=== PATIENT | male | born 1945 | race Caucasian/White ===

== ENCOUNTER 2020-11-12 06:23 | Inpatient (IN) | payer MEDICARE, SELFPAY ==
[2020-11-12] VITALS (19 sets, daily range): BP systolic 105–137; BP diastolic 68–94; PULSE 82–122; RESP 15–38; TEMP 36.1–36.6; O2SAT 83–95; BMI 27.2
--- NOTE | 2020-11-12 06:37 | XR_ITS ---
WS: [id number] PORTABLE CHEST HISTORY: Cough COMPARISON: 02/21/2013 Lung volumes are decreased. Mild thickening of the interstitium bilaterally has progressed since the prior study. Diaphragms are obscured by small bilateral pleural effusions. Pulmonary vasculature is i ncreased. No pneumothorax. Cardiac size: Mildly enlarged cardiac silhouette. Mediastinum/Aorta: Mild atherosclerosis aorta. No osseous abnormality seen. XR/XR chest 1V portable [id number] IMPRESSION: 1. Mild pulmonary venous congestion with small bilateral pleural effusions. 2. Mild cardiomegaly.
--- NOTE | 2020-11-12 06:37 | ECG_ITS ---
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 Measurements Intervals [place] Rate: 85 P: 44 NM: 139 QRS: 13 QRSD: 90 T: 0 QT: 396 QTc: 473 Interpretive Statements SINUS RHYTHM WITH SINUS ARRHYTHMIA POSSIBLE LEFT ATRIAL ENLARGEMENT [-0.1mV P WAVE IN V1/V2] POSSIBLE RIGHT VENTRICULAR CONDUCTION DELAY [RSR (QR) IN V1/V2] NONSPECIFIC ST & T-WAVE ABNORMALITY Compared to ECG 11/12/2020 09:29:53 Sinus tachycardia no longer present Ventricular premature complex(es) no longer present T-wave abnormality still present Electronically Signed On 11-12-2020 22:52:23 CDT by Prateek Claudio M.D. [id number]
--- NOTE | 2020-11-12 06:38 | W.ED.SOB ---
HPI - SOB/Dyspnea General: Chief Complaint: Shortness of Breath/Dyspnea Stated Complaint: SOB Time Seen by Provider: 11/12/20 06:34 History of Present Illness: HPI Narrative: This patient is a 75-year-old male who presents to the emergency department with complaint of shortness of breath fatigue and dizziness. Patient does have a history of A. fib and aortic stenosis. The beginning of October approximately 5 weeks ago the patient was in [facility] and had a mild heart attack. Was in the hospital for 2 days. Bit patient did not have any cardiac stents at that time but elected to fly home to the local area to have possible heart surgery in [place]. Patient's had issues with fatigue and dizziness ever since. And started having shortness of breath around 3 AM. Patient denies any cough or congestion. Patient has had the Covid vaccine. Upon arrival the patient's O2 sat was in the mid 80s. Was placed on oxygen. Patient states he feels much better with oxygen. Patient denies a history of oxygen use in the past. Pulse ox on nasal cannula at this time is 87% we will do medical evaluation treat as needed MD elicited complaint: shortness of breath Onset (ago): hour(s) Timing: constant Severity: similar to previous episodes Associated symptoms: Reports dizziness and lightheadedness; Deny abdominal pain, chest pain, extremity pain, fever(s), nausea, palpitations or vomiting Review of Systems General: Reports: 10 or more systems reviewed and unremarkable except in HPI and below Const: Denies: fever(s), chills, body aches or fatigue Eyes: Denies: change in vision or blurry vision ENMT: Denies: throat pain, hoarseness or mouth pain Card: Reports: irregular heart rhythm and lightheadedness; Denies: chest pain, palpitations, edema or swelling of feet/ankles Resp: Reports: dyspnea; Denies: productive cough, non-productive cough, wheezing or pain on inspiration GI: Denies: abdominal pain, nausea or vomiting : Denies: flank pain, dysuria, urinary frequency, urinary urgency or urinary hesitancy Musc: Denies: neck pain, back pain, extremity pain, extremity swelling, joint pain, joint swelling, joint redness, joint warmth or limited range of motion Skin/Breast: Denies: rash, pruritus, erythema or skin tenderness Neuro: Reports: dizziness; Denies: headache(s), numbness in extremities or weakness in extremities Psych: Denies: anxiety or depression Physical Exam Const: COMMON NORMALS: no acute distress, average body habitus, patient oriented x3, no limitations, healthy appearing, alert and well nourished HENMT: COMMON NORMALS: normocephalic, atraumatic, hearing grossly normal bilaterally, external ears normal, EAC's normal, TM's normal bilaterally, Normal external nose present, Normal nasal mucous membranes and turbinates present, moist oral mucous membranes, oropharynx normal, dentition normal and gingiva normal HEAD & SCALP: normocephalic and atraumatic NOSE: Normal external nose present and Normal nasal mucous membranes and turbinates present EXTERNAL EAR: Yes external ears normal EXTERNAL AUDITORY CANAL: EAC's normal TYMPANIC MEMBRANE: TM's normal bilaterally Neck/C-Spine: COMMON NORMALS: full ROM, no lymphadenopathy, supple, no meningeal signs, no JVD, Thyroid normal and No carotid bruits THYROID: Thyroid normal Chest: COMMONS NORMALS: normal inspection of the chest, normal palpation of entire chest wall, normal inspection of the breasts and normal palpation of the breasts Breast/axilla inspection: Yes normal inspection of the breasts BREAST/AXILLA PALPATION: Yes normal palpation of the breasts Resp: COMMON NORMALS: normal respiratory effort, No retractions, No use of accessory muscles, clear to auscultation bilaterally and percussion normal AUSCULTATION: clear to auscultation bilaterally PERCUSSION: percussion normal Cardio: COMMON NORMALS: no JVD, regular rate, regular rhythm, S1 normal heart sound present, S2 normal heart sound present, No gallops present (Cardio), No clicks present (Cardio), No murmurs present (Cardio), No rub (Cardio) and Peripheral pulses 2+ throughout RATE: regular rate RHYTHM: regular rhythm HEART SOUNDS: S1 normal heart sound present and S2 normal heart sound present PERIPHERAL PULSES: Peripheral pulses 2+ throughout GI: COMMON NORMALS: Normal to inspection, nondistended, normoactive bowel sounds present, Soft to palpation, non-tender, No hepatosplenomegaly present, no masses and no bruits PALPATION: Yes Soft to palpation and Yes No hepatosplenomegaly present : COMMON NORMALS: Yes no CVA tenderness BLADDER/KIDNEY EXAM: Yes no CVA tenderness Back/Pelvis: COMMON NORMALS: no CVA tenderness, thoracic and lumbar spine normal to inspection, no thoracic nor lumbar tenderness, thoraco-lumbar ROM normal and straight leg raise negative bilaterally Extremity: COMMON NORMALS: normal to inspection, full ROM, capillary refill normal, no joint enlargement, no clubbing, cyanosis or edema, no calf tenderness and no pedal edema Neuro: COMMON NORMALS: patient oriented x3 SENSORIUM/ORIENTATION: Yes alert MENINGEAL SIGNS: Yes no meningeal signs Course Reevaluation(s): Reevaluation #1: I did discuss at length with patient and family about findings. Patient appears to have acute heart failure related to his recent VT 1 month ago. Patient and family are requesting to be transferred to [facility] since they have been set up with CV surgery and cardiology through [facility]. Since his VT. I did discuss at length with patient about the ability to take care of congestive heart failure here with a request to be transferred. Patient's been given IV Lasix. We will contact transfer services at [facility] for transfer per patient's request. Time: 08:23 Consultations: Consultation #1: I did try to arrange for transfer to [facility] but they are all full divert. No beds available. I did discuss at length with patient family and they agreed to be admitted to this facility if capable. I have discussed at length with Dr. Alarcon hospitalist. He is agreed to accept this patient for admission. He recommends amiodarone drip to help control A. fib. I have also consulted cardiology Dr. Vazquez and she is accepted to also follow with this patient. Patient be admitted to CCU Time: 08:43 Vital Signs: Vital signs: Vital Signs Temperature 97.0 F L 11/12/20 06:28 Pulse Rate 102 H 11/12/20 07:51 Respiratory Rate 22 H 11/12/20 07:48 Blood Pressure 116/83 11/12/20 06:33 Pulse Oximetry 92 11/12/20 07:48 MDM - SOB/Dyspnea MDM Narrative: Medical decision making narrative: This patient is a 75-year-old male who presents to the emergency department with complaint of shortness of breath fatigue and dizziness. Patient does have a history of A. fib and aortic stenosis. The beginning of October approximately 5 weeks ago the patient was in [facility] and had a mild heart attack. Was in the hospital for 2 days. Bit patient did not have any cardiac stents at that time but elected to fly home to the local area to have possible heart surgery in [place]. Patient's had issues with fatigue and dizziness ever since. And started having shortness of breath around 3 AM. Patient denies any cough or congestion. Patient has had the Covid vaccine. Upon arrival the patient's O2 sat was in the mid 80s. Was placed on oxygen. Patient states he feels much better with oxygen. Patient denies a history of oxygen use in the past. Pulse ox on nasal cannula at this time is 87% I did discuss at length with patient and family about findings. Patient appears to have acute heart failure related to his recent VT 1 month ago. Patient and family are requesting to be transferred to [facility] since they have been set up with CV surgery and cardiology through [facility]. Since his VT. I did discuss at length with patient about the ability to take care of congestive heart failure here with a request to be transferred. Patient's been given IV Lasix. We will contact transfer services at [facility] for transfer per patient's request. I did try to arrange for transfer to [facility] but they are all full divert. No beds available. I did discuss at length with patient family and they agreed to be admitted to this facility if capable. I have discussed at length with Dr. Alarcon hospitalist. He is agreed to accept this patient for admission. He recommends amiodarone drip to help control A. fib. I have also consulted cardiology Dr. Vazquez and she is accepted to also follow with this patient. Patient be admitted to CCU Lab Data: Labs: Lab Results 11/12/20 11/12/20 11/12/20 Range/Units 07:01 07:16 07:16 WBC 14.4 H (4.0-10.0) 10^3/ uL RBC 4.99 (4.1-5.3) 10^6/u L Hgb 14.4 (11.7-16.6) g/dL Hct 44.1 (42.0-52.0) % MCV 88.4 (80-94) fL MCH 28.9 (28.0-34.0) pg MCHC 32.7 (30.0-36.0) g/dL RDW 16.2 H (12.1-15.1) % Plt Count 226 (130-400) 10^3/c mm MPV 10.1 (7.4-10.4) fL Neut % (Auto) 77.5 % Lymph % (Auto) 14.2 % Fleming % (Auto) 7.0 % Eos % (Auto) 0.3 % Baso % (Auto) 0.6 % Neut # (Auto) 11.18 H (1.8-7.7) 10^3/u L Lymph # (Auto) 2.0 (0.8-4.8) 10^3/u L Fleming # (Auto) 1.0 H (0.2-0.9) 10^3/u L Eos # (Auto) 0.0 (0.0-0.8) 10^3/u L Baso # (Auto) 0.1 (0.0-0.1) 10^3/u L Nucleated RBC % (a uto) 0 % Nucleated RBCs # 0.0 /100WBC Specimen Type Arterial Sample Site Brachial, left ABG pH 7.48 H (7.35-7.45) ABG pCO2 39.8 (35-45) mmHg ABG pO2 53.1 L (80.0-100.0) mmH g ABG HCO3 29.8 H (22-26) mmol/L ABG O2 Saturation 89.6 ABG Base Excess 5.9 H (-2.0-2.0) mmol/ L Theo Test Pos A-a O2 Gradient 16.4 H (5-10) mmHg Hematocrit 45.3 (42-52) % Hgb O2 Saturation 87.7 L (95-100) % Carboxyhemoglobin 1.3 (0.4-20.1) %THgb Methemoglobin 0.8 (0.4-1.5) % Total Hemoglobin 14.8 (14-18) g/dL Sodium 141.0 141 (131-143) mmol/L Potassium 3.6 3.7 (3.5-5.0) mmol/L Glucose 111.0 100 (70-115) mg/dL Ionized Calcium 1.3 (1.1-1.4) mmol/L O2 Delivery Device Nc O2 Liters/Min 3.5 % FiO2 32.0 % Logistic Manager ID Monro Chloride 103 (98-107) mmol/L Carbon Dioxide 26 (22-29) mmol/L Anion Gap 15.7 (5-19) BUN 16 (8-23) mg/dL Creatinine 0.5 L (0.7-1.2) mg/dL GFR Calculation Not Reportable Calculated Osmolal ity 293 (285-295) mOsm/k g Calcium 9.3 (8.5-10.5) mg/dL Total Bilirubin 0.6 (0.15-1.2) mg/dL AST 15 (0-40) U/L ALT 14 (0-41) U/L Alkaline Phosphata se 99 (40-130) IU/L Troponin T Baselin e (0-15) ng/L NT-Pro-B Natriuret Pep 75890 H (0-450) pg/mL Total Protein 6.1 L (6.6-8.7) g/dL Albumin 3.2 L (3.5-5.2) g/dL Globulin 2.9 (1.3-4.6) g/dL SARS-CoV-2 Ag (Rap id) (Negative) 11/12/20 11/12/20 Range/Units 07:16 07:18 WBC (4.0-10.0) 10^3/ uL RBC (4.1-5.3) 10^6/u L Hgb (11.7-16.6) g/dL Hct (42.0-52.0) % MCV (80-94) fL MCH (28.0-34.0) pg MCHC (30.0-36.0) g/dL RDW (12.1-15.1) % Plt Count (130-400) 10^3/c mm MPV (7.4-10.4) fL Neut % (Auto) % Lymph % (Auto) % Fleming % (Auto) % Eos % (Auto) % Baso % (Auto) % Neut # (Auto) (1.8-7.7) 10^3/u L Lymph # (Auto) (0.8-4.8) 10^3/u L Fleming # (Auto) (0.2-0.9) 10^3/u L Eos # (Auto) (0.0-0.8) 10^3/u L Baso # (Auto) (0.0-0.1) 10^3/u L Nucleated RBC % (a uto) % Nucleated RBCs # /100WBC Specimen Type Sample Site ABG pH (7.35-7.45) ABG pCO2 (35-45) mmHg ABG pO2 (80.0-100.0) mmH g ABG HCO3 (22-26) mmol/L ABG O2 Saturation ABG Base Excess (-2.0-2.0) mmol/ L Theo Test A-a O2 Gradient (5-10) mmHg Hematocrit (42-52) % Hgb O2 Saturation (95-100) % Carboxyhemoglobin (0.4-20.1) %THgb Methemoglobin (0.4-1.5) % Total Hemoglobin (14-18) g/dL Sodium (131-143) mmol/L Potassium (3.5-5.0) mmol/L Glucose (70-115) mg/dL Ionized Calcium (1.1-1.4) mmol/L O2 Delivery Device O2 Liters/Min % FiO2 % Logistic Manager ID Chloride (98-107) mmol/L Carbon Dioxide (22-29) mmol/L Anion Gap (5-19) BUN (8-23) mg/dL Creatinine (0.7-1.2) mg/dL GFR Calculation Calculated Osmolal ity (285-295) mOsm/k g Calcium (8.5-10.5) mg/dL Total Bilirubin (0.15-1.2) mg/dL AST (0-40) U/L ALT (0-41) U/L Alkaline Phosphata se (40-130) IU/L Troponin T Baselin e 57 H (0-15) ng/L NT-Pro-B Natriuret Pep (0-450) pg/mL Total Protein (6.6-8.7) g/dL Albumin (3.5-5.2) g/dL Globulin (1.3-4.6) g/dL SARS-CoV-2 Ag (Rap id) Negative (Negative) Imaging Data^: CXR: Attestation: I personally reviewed and interpreted this imaging study as follows: Radiologist's impression: IMPRESSION: 1. Mild pulmonary venous congestion with small bilateral pleural effusions. 2. Mild cardiomegaly. EKG Data^: EKG 1: Attestation: I personally reviewed and interpreted this EKG as follows: EKG Interpretation Date: 11/12/20 EKG interpretation time: 07:03 Prior EKG tracings: not available for review Ischemic changes: non-specific ST-T wave changes Interpretation: Atrial fibrillation with RVR heart rate 103. Nonspecific ST changes. Discharge Plan Discharge Patient Disposition: Admitted As Inpatient Clinical Impression: Acute CHF (congestive heart failure), Pulmonary edema, Aortic stenosis, Atrial fibrillation with rapid ventricular response, Coronary artery disease, Recent heart attack, Dyspnea Condition: Stable Coding Level of Care Code ED Spanish Translator for Chg Fwd Exam Comprehensive
[2020-11-12 07:14] LABS: ABG PCO2 39.8 mmHg (35-45); ABG PH Result 7.48 (7.35-7.45); Alveolar-Arterial Oxygen Gradi 16.4 mmHg (5-10); Arterial Blood Gas Hematocrit 45.3 % (42-52); Base Excess ABG 5.9 mmol/L (-2.0-2.0); Blood Gas Allen Test Pos; Blood Gas LPM 3.5 %; Blood Gas Operator Identificat MONRO; Blood Gas Sample Site Brachial, left; Blood Gas Sample Type Arterial; Carboxyhemoglobin 1.3 %THgb (0.4-20.1); HCO3 ABG 29.8 mmol/L (22-26); HGB O2 Sat 87.7 % (95-100); Ionized Calcium Level - ABG 1.3 mmol/L (1.1-1.4); Methemoglobin 0.8 % (0.4-1.5); Oxygen Device NC; Oxygen Saturation ABG 89.6; PO2 ABG 53.1 mmHg (80.0-100.0); Potassium Level - ABG 3.6 mmol/L (3.5-5.0); Total Hemoglobin 14.8 g/dL (14-18)
[2020-11-12 07:23] LABS: Basophils # 0.1 10^3/uL (0.0-0.1); Basophils % 0.6 %; Eosinophils % 0.3 %; Hematocrit 44.1 % (42.0-52.0); Hemoglobin 14.4 g/dL (11.7-16.6); Lymphocytes % 14.2 %; Mean Corpuscular HGB Conc 32.7 g/dL (30.0-36.0); Mean Corpuscular Hemoglobin 28.9 pg (28.0-34.0); Mean Corpuscular Volume 88.4 fL (80-94); Mean Platelet Volume 10.1 fL (7.4-10.4); Neutrophils # 11.18 10^3/uL (1.8-7.7); Neutrophils % 77.5 %; Nucleated Red Blood Cells % 0 %; Platelet Count 226 10^3/cmm (130-400); Red Blood Count 4.99 10^6/uL (4.1-5.3); Red Cell Distribution Width 16.2 % (12.1-15.1); White Blood Count 14.4 10^3/uL (4.0-10.0)
[2020-11-12 07:43] LABS: Troponin(5th) Baseline 57 ng/L (0-15)
[2020-11-12] MEDS: albuterol 8 gm MDI 2 PUFF INHALATION (07:47)
[2020-11-12 07:50] LABS: Alanine Aminotransferase 14 U/L (0-41); Albumin Level 3.2 g/dL (3.5-5.2); Alkaline Phosphatase 99 IU/L (40-130); Anion Gap 15.7 (5-19); Aspartate Amino Transferase 15 U/L (0-40); Blood Urea Nitrogen 16 mg/dL (8-23); Calcium 9.3 mg/dL (8.5-10.5); Carbon Dioxide 26 mmol/L (22-29); Chloride 103 mmol/L (98-107); Globulin 2.9 g/dL (1.3-4.6); Glucose 100 mg/dL (65-115); NT Pro B Type Natriuretic Pept 14228 pg/mL (0-450); Osmolality Calculated 293 mOsm/kg (285-295); Potassium 3.7 mmol/L (3.5-5.1); Sodium 141 mmol/L (136-145); Total Bilirubin 0.6 mg/dL (0.15-1.2); Total Protein 6.1 g/dL (6.6-8.7)
[2020-11-12 08:06] LABS: SARS Covid-2 Antigen Negative (Negative)
[2020-11-12] MEDS: FUROsemide 10 mg/mL SDV 10mL 80 MG IVP (08:22)
--- NOTE | 2020-11-12 08:37 | ECG_ITS ---
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 Measurements Intervals [place] Rate: 103 P: 68 [place]V: 145 QRS: 71 QRSD: 93 T: 50 QT: 373 QTc: 489 Interpretive Statements SINUS TACHYCARDIA WITH OCCASIONAL VENTRICULAR PREMATURE COMPLEXES NONSPECIFIC ST & T-WAVE ABNORMALITY Poor R wave progression Nonspecific T wave change ABNORMAL RHYTHM ECG Compared to ECG 11/12/2020 07:03:13 Ventricular premature complex(es) now present Atrial fibrillation no longer present T-wave abnormality still present Electronically Signed On 11-12-2020 23:00:40 CDT by Prateek Claudio M.D. [id number]
--- NOTE | 2020-11-12 08:49 | PC.PHAR ---
pt states he takes care of his own medications-pt states he hasnt taken any medications today-pt states around october [address] halle amlodipine 10mg and lisinopril-hctz 20-12.5mg -
[2020-11-12 09:19] LABS: INR 1.06 (0.8-1.2)
[2020-11-12 09:20] LABS: Partial Thromboplastin Time 32.3 SECONDS (23.9-36.7)
[2020-11-12] MEDS: enoxaparin 80 mg/0.8 mL Syringe SUBCUT (09:20)
[2020-11-12 09:23] LABS: D Dimer 0.62 ug/mIFEU (0-0.59)
[2020-11-12 09:36] LABS: Troponin 5 2HR 81.31 ng/L (0-15)
[2020-11-12 09:41] LABS: Troponin 5 2HR Delta 24.31 ABS# (0-10)
--- NOTE | 2020-11-12 11:21 | PM.HP ---
Providers/Chief Complaint Primary Care Provider: ESDRAS Sahni Chief Complaint: SOB History of Present Illness Omari Chairez is a 75 year old male who presents with shortness of breath. He states this started yesterday. He reports he had some dry heaves last night. He has not had any chest discomfort. He has been dizzy, especially with any activity. He was recently hospitalized in [place] from October 16 through October 17 with significant dizziness. At that time he was diagnosed with severe aortic stenosis. He had also been following up with the [place] allergist immunologist who had done an angiogram, Dr. De Jesus, who recommended valve surgery as well as bypass surgery for an affected vessel. He reports while in [place] he was also diagnosed with atrial fibrillation, and had some anemia for which she required a transfusion of 2 units of blood. He reports he had some black stool prior to [facility] but this is since stopped. He has had a colonoscopy about 10 years ago or so but none since. He denies any history of Covid. He has been vaccinated. In the emergency department he received amiodarone 150 mg IV x1 secondary to concern of atrial fibrillation with rapid ventricular rates. He also received Lovenox, and Lasix. Review of Systems General: Reports: 10 or more systems reviewed and unremarkable except in HPI and below Const: Denies: fever(s) or chills Eyes: Denies: change in vision ENMT: Denies: throat pain Card: Reports: lightheadedness and dyspnea on exertion; Denies: edema Resp: Reports: dyspnea GI: Denies: abdominal pain : Denies: flank pain Skin/Breast: Denies: rash Neuro: Denies: headache(s) Psych: Reports: depression; Denies: anxiety Endo: Denies: polyuria Domenico/Lymph: Denies: easy bruising All/Imm: Denies: urticaria Medications/Allergies Home Medications Medication Instructions Recorded Confirmed Last Taken Type aspirin 81 mg PO QAM 11/12/20 11/12/20 11/11/20 History atorvastatin 40 mg PO QAM 11/12/20 11/12/20 11/11/20 History dulaglutide [Trulicity] 1.5 mg SUBCUT Q7D 11/12/20 11/12/20 11/11/20 History ferrous sulfate 325 mg PO BID 11/12/20 11/12/20 11/11/20 History insulin degludec [Tresiba 47 unit SUBCUT QAM 11/12/20 11/12/20 11/11/20 History FlexTouch U-100] metformin 1,000 mg PO BID 11/12/20 11/12/20 11/11/20 History metoprolol tartrate 25 mg PO BID 11/12/20 11/12/20 11/11/20 History ondansetron HCl 4 mg PO Q6H PRN 11/12/20 11/12/20 11/11/20 History sertraline 50 mg PO QAM 11/12/20 11/12/20 11/11/20 History tramadol 50 mg PO QID PRN 11/12/20 11/12/20 Unknown History Allergies Allergy/AdvReac Type Severity Reaction Status Date / Time No Known Allergies Allergy Verified 11/12/20 08:49 PFSH Acute PFSH: Medical History (Updated 11/12/20 @ 11:33 by Eddy Alarcon MD) Atrial fibrillation Coronary artery disease Depression Diabetes mellitus Hyperlipidemia Hypertension Prostate cancer Severe aortic stenosis Surgical History (Updated 11/12/20 @ 11:25 by Eddy Alarcon MD) History of hand surgery History of prostatectomy Family History (Updated 11/12/20 @ 11:25 by Eddy Alarcon MD) Other CAD (coronary artery disease) Social History (Updated 11/12/20 @ 11:25 by Eddy Alarcon MD) Smoking and tobacco status: former smoker Alcohol intake: never Vitals/I&O/Wt Last Vital Signs Temp 97.0 F L 11/12/20 06:28 Pulse 102 H 11/12/20 11:00 Resp 18 11/12/20 11:00 BP 119/79 11/12/20 11:00 Pulse Ox 92 11/12/20 11:00 Weight last 48 hrs Weight 86.183 kg Physical Exam Narrative: EXAM NARRATIVE: General exam is a conversant male, with friend present who he reports helps him make decisions. Mild respiratory distress noted. HEENT: Pupils equally round. Oropharynx clear. Neck is supple no lymphadenopathy thyromegaly Cardiovascular regular rate and rhythm with a 3/6 systolic murmur heard best in the aortic area Lungs demonstrate crackles bibasilar. No wheezing. Diminished breath sounds are noted bilaterally. Abdomen is soft nontender with positive bowel sounds. No obvious organomegaly was deferred Extremities no cyanosis clubbing or edema, cap refill brisk Skin no rash Neuro no obvious focal deficits. Data : 11/12/20 07:16 11/12/20 07:16 Other data: EKG demonstrates sinus rhythm, frequent PACs, nonspecific ST-T wave changes. Chest x-ray demonstrates interstitial edema consistent with CHF and bilateral small pleural effusions Dimer 0.62, INR normal ABG demonstrates a pH of 7.48, PCO2 of 40, PO2 of 53 on 32% FiO2 Rapid Covid negative Troponin 57 with repeat of 81 BNP 14,228 Albumin 3.2 LFTs normal A&P Assessment and plan (1) Acute CHF (congestive heart failure): Patient with acute congestive heart failure symptoms on admission including elevated BNP, chest x-ray consistent with heart failure, shortness of breath. There was no evidence of atrial fibrillation on presentation. Patient has received 1 dose of Lasix 80 mg IV while in the emergency department. We will continue 40 mg IV every 12 hours and monitor blood pressure closely secondary to his history of aortic stenosis. May have an element of acute non-ST elevation myocardial infarction with delta troponin being approximately 20. He was fully anticoagulated with Lovenox in the emergency department. We will continue this and monitor for any bleeding. Continue aspirin 325 mg daily. Continue statin. Cardiology consultation Status: Acute (2) Acute and chronic respiratory failure with hypoxia: As manifested by low PO2, respiratory distress, need for oxygen to prevent hypoxia. Secondary to heart failure. Status: Acute (3) Severe aortic stenosis: Will obtain records from hospitalization in [place]. Status: Acute (4) Coronary artery disease: Metoprolol, aspirin, statin. From history it sounds like the patient has significant coronary disease that will require bypass grafting Status: Acute (5) Atrial fibrillation: History of atrial fibrillation but he is not in atrial fibrillation currently. Resume his metoprolol which he did not take this morning. No more amiodarone unless atrial fibrillation with rapid ventricular rate occurs Status: Acute (6) Diabetes mellitus: Sliding scale insulin Status: Acute (7) Hypertension: Continue metoprolol Status: Acute (8) Hyperlipidemia: Continue statin Status: Acute Additional A&P Information History of anemia, and blood transfusion within the last month. Protonix 40 mg once daily. Full code Lovenox for DVT prophylaxis Records obtained from [facility] demonstrate critical aortic stenosis with valve area of 0.5 cm?, 85% stenosis RCA, and EF of 40% Attestations Medical Necessity Statement*: Will need greater than 2 midnight stay for evaluation of CHF, severe aortic stenosis, likely non-ST elevation myocardial infarction. Time Spent in Patient Care: Greater than 35 minutes Coding Level of Care Code Acute Editing Clerk for [facility] Fwd Diagnoses Acute CHF (congestive heart failure) I50.9 Acute and chronic respiratory failure with hypoxia J96.21 Severe aortic stenosis I35.0 Coronary artery disease I25.10 Atrial fibrillation I48.91 Diabetes mellitus E11.9 Hypertension I10 Hyperlipidemia E78.5
[2020-11-12] MEDS: metoprolol tartrate 25 mg Tablet PO ×2 (11:38→17:29)
[2020-11-12] MEDS: aspirin 325 mg Tablet PO (11:39)
--- NOTE | 2020-11-12 12:37 | ECG_ITS ---
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 Measurements Intervals [place] Rate: 103 P: DE: QRS: 73 QRSD: 90 T: 24 QT: 374 QTc: 490 Interpretive Statements Normal sinus rhythm with frequent supraventricular ectopics Possible left atrial large NONSPECIFIC ST & T-WAVE ABNORMALITY ABNORMAL RHYTHM ECG No previous ECG available for comparison Electronically Signed On 11-12-2020 22:58:37 CDT by Prateek Claudio M.D. [email or web address]
[2020-11-12 12:46] LABS: Glucose Point of Care 161 mg/dL (70-110)
[2020-11-12 12:46] LABS: Glucose Point of Care 165 mg/dL (70-110)
--- NOTE | 2020-11-12 12:55 | P.CONIM_ITS ---
Providers/Reason For Consult Consulting Physician/Specialty*: Dr. Vazquez, cardiology Reason for Consult*: Severe aortic stenosis, congestive heart failure Attending Physician: Eddy Alarcon MD Primary Care Provider: ESDRAS Sahni History of Present Illness History of Present Illness Omari Chairez is a 75 year old with recently diagnosed severe being followed by Dr. De Jesus, paroxysmal atrial fibrillation, CAD with recent cardiac cathetarization (10/30/20: critical with ZAIN 0.5 cm2, dominant RCA with 85% stenosis and LVEF=40% with inferior and apical hypokinesis), normal LV function on TTE ( LVEF-55-60%, severe with MG of 62 mm HG, mild MR) presented with shortness of breath. SOB started last week and has progressively worsened since yesterday with some dizziness. He reports he had some dry heaves last night. No chest discomfort. CXR showed pulmonary congestion. ProBNP >14,000. He received lasix 80 mg IV x1. He received amiodarone 150 mg IV x1 secondary to concern of atrial fibrillation with rapid ventricular rates. He also received Lovenox and and telemetry showed runs of SVT. EKG showed sinus tachycardia with PVC's. He was recently hospitalized in [place] from last month with significant dizziness. At that time he was diagnosed with severe aortic stenosis, atrial fibrillation and LGIB and recieved 2 units of pRBC. He recently started following up with Dr. De Jesus, who recommended valve surgery as well as bypass surgery. Records from [facility] received and reviewed. He reports he had some black stool prior to [facility] but this is since stopped. He has had a colonoscopy about 10 years ago or so but none since. He denies any history of Covid. He has been vaccinated. Review of Systems General: Reports: 10 or more systems reviewed and unremarkable except in HPI and below Const: Denies: fever(s), chills or change in appetite Card: Reports: lightheadedness and dyspnea on exertion; Denies: edema Resp: Reports: dyspnea GI: Denies: abdominal pain : Denies: flank pain Musc: Denies: extremity swelling Skin/Breast: Denies: rash Neuro: Denies: headache(s) Psych: Reports: depression; Denies: anxiety Domenico/Lymph: Denies: easy bruising All/Imm: Denies: urticaria Meds/Allergies Home Medications and Allergies Home Medications Medication Instructions Recorded Confirmed Last Taken Type aspirin 81 mg PO QAM 11/12/20 11/12/20 11/11/20 History atorvastatin 40 mg PO QAM 11/12/20 11/12/20 11/11/20 History dulaglutide [Trulicity] 1.5 mg SUBCUT Q7D 11/12/20 11/12/20 11/11/20 History ferrous sulfate 325 mg PO BID 11/12/20 11/12/20 11/11/20 History insulin degludec [Tresiba 47 unit SUBCUT QAM 11/12/20 11/12/20 11/11/20 History FlexTouch U-100] metformin 1,000 mg PO BID 11/12/20 11/12/20 11/11/20 History metoprolol tartrate 25 mg PO BID 11/12/20 11/12/20 11/11/20 History ondansetron HCl 4 mg PO Q6H PRN 11/12/20 11/12/20 11/11/20 History sertraline 50 mg PO QAM 11/12/20 11/12/20 11/11/20 History tramadol 50 mg PO QID PRN 11/12/20 11/12/20 Unknown History Allergies Allergy/AdvReac Type Severity Reaction Status Date / Time No Known Allergies Allergy Verified 11/12/20 08:49 PFSH Acute PFSH: Medical History (Updated 11/12/20 @ 20:51 by Karina Vazquez MD) Atrial fibrillation Coronary artery disease Depression Diabetes mellitus Hyperlipidemia Hypertension NSTEMI (non-ST elevated myocardial infarction) Prostate cancer Severe aortic stenosis Surgical History History of hand surgery History of prostatectomy Family History Other CAD (coronary artery disease) Social History Smoking and tobacco status: former smoker Alcohol intake: never Vitals/I&O/Wt Last Vital Signs Temp 97.0 F L 11/12/20 06:28 Pulse 99 11/12/20 12:06 Resp 28 H 11/12/20 12:06 BP 122/80 11/12/20 12:06 Pulse Ox 91 11/12/20 12:06 11/11/20 11/12/20 11/12/20 22:59 06:59 14:59 Intake Total 103 / 103 Balance 103 / 103 Weight last 48 hrs Weight 190 lb Physical Exam Narrative: EXAM NARRATIVE: GENERAL: elderly pleasant man sitting in bed in no acute distress HEENT: Pupils equal round reactive to light. No pallor or icterus. NECK: No JVD, No carotid bruit. CARDIOVASCULAR SYSTEM: S1-S2 regular, soft S2. tachycardia+. Grade 3/6 harsh cresendo murmur in aortic area RESPIRATORY SYSTEM: Chest clear to auscultation except at bases. No wheezes. + fine crakles ABDOMEN: Soft, nontender and nondistended. Normal bowel sounds present. EXTREMITIES: No cyanosis or clubbing. No edema. GRINDING WHEEL INSPECTOR: Patient is alert oriented ?3. No focal neurological deficits. SKIN: Normal turgor and temperature. No breakdown, rash or nail changes noted. PSYCH: Normal insight and judgment. A&P Assessment and plan (1) Acute CHF (congestive heart failure): Decompensated CHF in setting of critical -agree with lasix 40 mg IV q 12 hr -closely monitor on telemetry and for electrolytes abnormalities. -Keep K> 4 and Mg >2. Status: Acute Qualifiers: Heart failure type: systolic Qualified Code(s): I50.21 - Acute systolic (congestive) heart failure (2) Severe aortic stenosis: Critical with single vessel CAD -being evaluated for SAVR with single vessel CABG at [facility] and has appointment next week. Status: Acute (3) NSTEMI (non-ST elevated myocardial infarction): Likely Type 2 in setting of severe and CHF Status: Acute (4) Atrial fibrillation: Paroxysmal A. fib currently on lovenox. -continue low dose metoprolol. Status: Acute Qualifiers: Atrial fibrillation type: paroxysmal Qualified Code(s): I48.0 - Paroxysmal atrial fibrillation (5) Hypertension: Status: Acute Qualifiers: Hypertension type: essential hypertension Qualified Code(s): I10 - Essential (primary) hypertension Additional A&P Information CAD paroxysmal SVT noted on telemetry: start on PO amiodarone. ID DM-2 Hyperlipidemia H/o GI bleed Thank you for allowing me to participate in patient's care. Please feel free to call with questions or concerns. Coding Level of Care Code Acute Lumber Estimator for Tomas Griffin Diagnoses Acute CHF (congestive heart failure) I50.21 Heart failure type: systolic Severe aortic stenosis I35.0 NSTEMI (non-ST elevated myocardial infarction) I21.4 Atrial fibrillation I48.0 Atrial fibrillation type: paroxysmal Hypertension I10 Hypertension type: essential hypertension
[2020-11-12 12:56] LABS: Glucose Point of Care 113 mg/dL (70-110)
[2020-11-12 13:18] LABS: Thyroid Stimulating Hormone 1.36 uIU/mL (0.27-4.20)
[2020-11-12 14:55] LABS: Troponin 5 6HR 132.5 ng/L (0-15); Troponin 5 6HR Delta 75.5 ng/L (0-12)
[2020-11-12 17:11] LABS: Glucose Point of Care 125 mg/dL (70-110)
[2020-11-12 20:45] LABS: Glucose Point of Care 198 mg/dL (70-110)
[2020-11-12] MEDS: ondansetron 2 mg/ML SDV 2 mL 4 MG IVP (21:30)
[2020-11-12] MEDS: FUROsemide 10 mg/mL SDV 4mL 40 MG IVP (21:32)
[2020-11-12] MEDS: amiodarone 200 mg Tablet 400 MG PO (21:32)
[2020-11-12] MEDS: enoxaparin 100 mg/mL Syringe 90 MG SUBCUT (21:43)
[2020-11-13] VITALS (10 sets, daily range): BP systolic 90–102; BP diastolic 69–82; PULSE 72–131; RESP 17–34; TEMP 36.6–36.8; O2SAT 87–95
[2020-11-13 06:03] LABS: Basophils # 0.1 10^3/uL (0.0-0.1); Basophils % 0.7 %; Eosinophils % 0.3 %; Hemoglobin 13.9 g/dL (11.7-16.6); Lymphocytes % 21.8 %; Mean Corpuscular HGB Conc 31.6 g/dL (30.0-36.0); Mean Corpuscular Hemoglobin 28.3 pg (28.0-34.0); Mean Corpuscular Volume 89.4 fL (80-94); Mean Platelet Volume 11.5 fL (7.4-10.4); Monocytes # 1.3 10^3/uL (0.2-0.9); Monocytes % 9.4 %; Neutrophils # 9.17 10^3/uL (1.8-7.7); Neutrophils % 67.4 %; Nucleated Red Blood Cells % 0 %; Platelet Count 248 10^3/cmm (130-400); Red Blood Count 4.92 10^6/uL (4.1-5.3); Red Cell Distribution Width 15.9 % (12.1-15.1); White Blood Count 13.6 10^3/uL (4.0-10.0)
[2020-11-13] MEDS: aspirin 81 mg EC Tablet PO (06:15)
[2020-11-13] MEDS: atorvastatin 40 mg Tablet PO (06:15)
[2020-11-13] MEDS: sertraline 50 mg Tablet PO (06:15)
[2020-11-13 06:25] LABS: Alanine Aminotransferase 14 U/L (0-41); Albumin Level 3.2 g/dL (3.5-5.2); Alkaline Phosphatase 97 IU/L (40-130); Anion Gap 13.5 (5-19); Aspartate Amino Transferase 20 U/L (0-40); Blood Urea Nitrogen 19 mg/dL (8-23); Calcium 9.4 mg/dL (8.5-10.5); Carbon Dioxide 30 mmol/L (22-29); Chloride 98 mmol/L (98-107); Globulin 3.1 g/dL (1.3-4.6); Glucose 200 mg/dL (65-115); Magnesium 1.7 mg/dL (1.7-2.3); Osmolality Calculated 294 mOsm/kg (285-295); Potassium 3.5 mmol/L (3.5-5.1); Sodium 138 mmol/L (136-145); Total Bilirubin 0.6 mg/dL (0.15-1.2); Total Protein 6.3 g/dL (6.6-8.7)
[2020-11-13 07:05] LABS: Glucose Point of Care 174 mg/dL (70-110)
--- NOTE | 2020-11-13 09:15 | ECG_ITS ---
[facility] Test Date: 2020-11-13 Pat Name: Omari Chairez Department: Room: 102 Gender: Male Fixed Capital Clerk: : 1945 Requested By: Eddy Elaine Order Number: [id number] Real MD: Karina Vazquze M.D. Measurements Intervals [place] Rate: 121 P: VT: QRS: -40 QRSD: 89 T: 0 QT: 354 QTc: 504 Interpretive Statements ATRIAL FIBRILLATION WITH RAPID VENTRICULAR RESPONSE WITH ABERRANT CONDUCTION OR VENTRICULAR PREMATURE COMPLEXES MARKED LEFT AXIS DEVIATION [QRS AXIS < -30] POSSIBLE RIGHT VENTRICULAR CONDUCTION DELAY [RSR (QR) IN V1/V2] NONSPECIFIC ST & T-WAVE ABNORMALITY Compared to ECG 11/12/2020 13:50:51 Ventricular premature complex(es) now present Left-axis deviation now present Sinus rhythm no longer present Sinus arrhythmia no longer present T-wave abnormality still present Electronically Signed On 11-14-2020 6:17:20 CDT by Karina Vazquez M.D. [email or web address]
--- NOTE | 2020-11-13 10:47 | PC.CHAP ---
Pastoral Care Encounter/Spiritual Assessment Type of Contact [] Declined manager of learning visit [] Patient/Family/Request visit [] Outpatient visit [] Follow-up visit [] Physician referral [] Code/Alert [x] Routine visit [] Staff referral [] Actively dying [] Patient sleeping [] Family support [] [] Out of room [] Palliative care [] [x] Receiving care in room [] Pre-surgical visit [] Trauma [x] Long length of stay [] ICU visit [] Other: Relational/Emotional Strength [x] Patient feels connected with others/family/visitors/staff [] Distress [] Loneliness/isolation [] Abandonment Spirituality of Patient [x] Person of [place] [] Attends Mosque of their [place] [x] Believes in Prayer [] Reads Bible or Baptism materials [] There are Spiritual issues to be addressed Nitrator Operator Interventions [x] Prayer [x] Active listening [x] Non-anxious presence [x] Spiritual/emotional support [] Crisis/trauma care [x] Spiritual counseling [] Bereavement support [] Provided bereavement packet [] Provided Bible/devotional materials [] Provided toy/stuffed animal, coloring book to patient or family member [] Provided Communion [] Anointing/[place] [] Salvation [x] Completed spiritual assessment [] Other: Impact on Illness or Injury [] Angry [] Fearful [x] Anxious [] Often cries [] Exhaustion [] Unable to work [] Unable to attend alevism [] Unable to walk/stand [] Unable to read [] Unable to drive [] Unable to eat/drink [] Unable to sleep [] Unable to be with family [] Patient intubated [] Other: Summary has had tests and more tests need to be done, waiting on open heart surgery in [place] / [facility], has good attitude +1 Time spent with patient 10 mins
[2020-11-13] MEDS: potassium chloride ER 20 mEq Tablet 40 MEQ PO ×2 (10:57→15:19)
[2020-11-13] MEDS: FUROsemide 10 mg/mL SDV 4mL 40 MG IVP (10:57)
[2020-11-13] MEDS: metoprolol tartrate 25 mg Tablet PO ×2 (10:59→18:24)
[2020-11-13] MEDS: pantoprazole DR 40 mg Tablet PO (10:59)
[2020-11-13] MEDS: amiodarone 200 mg Tablet 400 MG PO ×3 (10:59→21:54)
[2020-11-13 11:16] LABS: Glucose Point of Care 249 mg/dL (70-110)
--- NOTE | 2020-11-13 12:44 | P.PN_ITS ---
Subjective Subjective: Interval history: Patient denies having any symptoms today. Sitting comfortably in bed. Medications: Reviewed: Yes Vitals/I&O/Wt Last Vital Signs Temp 98.1 F 11/13/20 08:00 Pulse 118 H 11/13/20 08:00 Resp 28 H 11/13/20 08:00 BP 102/70 11/13/20 08:00 Pulse Ox 87 L 11/13/20 08:00 11/12/20 11/13/20 11/13/20 22:59 06:59 14:59 Intake Total 300 / 403 100 / 503 360 / 360 Output Total 625 / 625 Balance -325 / -222 100 / -122 360 / 360 Weight last 48 hrs Weight 192 lb 11.2 oz Weight 190 lb Physical Exam Narrative: EXAM NARRATIVE: GENERAL: elderly pleasant man sitting in bed in no acute distress HEENT: Pupils equal round reactive to light. No pallor or icterus. NECK: No JVD, No carotid bruit. CARDIOVASCULAR SYSTEM: S1-S2 regular, soft S2. tachycardia+. Grade 3/6 harsh cresendo murmur in aortic area RESPIRATORY SYSTEM: Chest clear to auscultation except at bases. No wheezes. + fine crakles ABDOMEN: Soft, nontender and nondistended. Normal bowel sounds present. EXTREMITIES: No cyanosis or clubbing. No edema. EARLY MORNING BABYSITTER: Patient is alert oriented ?3. No focal neurological deficits. SKIN: Normal turgor and temperature. No breakdown, rash or nail changes noted. PSYCH: Normal insight and judgment. Data : 11/13/20 04:13 11/13/20 04:13 A&P Assessment and plan (1) Acute CHF (congestive heart failure): Decompensated CHF in setting of critical -agree with lasix 40 mg IV q 12 hr for today. transition to PO lasix in morning. UO not documented right. -I spoke to Dr. De Jesus. There were no beds available at [facility] and patient already has an appointment scheduled with CV surgery next week. Earliest available. -Plan is to manage his decompensated CHF and A. fib with RVR here and then follow-up with CV surgery next week as an outpatient. -closely monitor on telemetry and for electrolytes abnormalities. -Keep K> 4 and Mg >2. The plan was discussed with the patient. Status: Acute Qualifiers: Heart failure type: systolic Qualified Code(s): I50.21 - Acute systolic (congestive) heart failure (2) Severe aortic stenosis: Critical with single vessel CAD -being evaluated for SAVR with single vessel CABG at [facility] and has appointment next week. Status: Acute (3) Atrial fibrillation: H/o paroxysmal A. fib -Patient now in atrial fibrillation with rapid response -currently on lovenox. -continue low dose metoprolol. -History of GI bleed however hemoglobin has been stable here with no active bleeding. -May transition to p.o. Eliquis tomorrow Status: Acute Qualifiers: Atrial fibrillation type: paroxysmal Qualified Code(s): I48.0 - Paroxysmal atrial fibrillation (4) NSTEMI (non-ST elevated myocardial infarction): Likely Type 2 in setting of severe and CHF Status: Acute (5) Hypertension: Status: Acute Qualifiers: Hypertension type: essential hypertension Qualified Code(s): I10 - Essential (primary) hypertension Additional A&P Information CAD : Single vessel CAD paroxysmal SVT noted on telemetry: ID DM-2 Hyperlipidemia H/o GI bleed Thank you for allowing me to participate in patient's care. Please feel free to call with questions or concerns. Attestations Medical Necessity Statement*: needs hospital stay for decompensated CHF Time Spent in Patient Care: 16 - 35 minutes (>than 50% of time spent in counselling and/or direct pt care on unit) . Coding Level of Care Code Acute Pest Control Service Sales Agent for Tomas Griffin Diagnoses Acute CHF (congestive heart failure) I50.21 Heart failure type: systolic Severe aortic stenosis I35.0 Atrial fibrillation I48.0 Atrial fibrillation type: paroxysmal NSTEMI (non-ST elevated myocardial infarction) I21.4 Hypertension I10 Hypertension type: essential hypertension
--- NOTE | 2020-11-13 12:57 | P.PN_ITS ---
Subjective Subjective: Interval history: Omari feels a little bit better. No chest discomfort. Not too short of breath with oxygen in place. Amiodarone orally started yesterday by cardiology secondary to elevated heart rate. Medications: Reviewed: Yes Vitals/I&O/Wt Last Vital Signs Temp 98.1 F 11/13/20 08:00 Pulse 118 H 11/13/20 08:00 Resp 28 H 11/13/20 08:00 BP 102/70 11/13/20 08:00 Pulse Ox 87 L 11/13/20 08:00 11/12/20 11/13/20 11/13/20 22:59 06:59 14:59 Intake Total 300 / 403 100 / 503 360 / 360 Output Total 625 / 625 Balance -325 / -222 100 / -122 360 / 360 Weight last 48 hrs Weight 87.407 kg Weight 86.183 kg Physical Exam Narrative: EXAM NARRATIVE: General exam no distress, currently on 5 L of oxygen. Neck is supple no lymphadenopathy thyromegaly Cardiovascular regular rate and rhythm with a 3/6 systolic murmur heard best in the aortic area Lungs demonstrate crackles bibasilar. No wheezing. Diminished breath sounds are noted bilaterally. Abdomen is soft nontender with positive bowel sounds. No obvious organomegaly Extremities no cyanosis clubbing or edema, cap refill brisk Data : 11/13/20 04:13 11/13/20 04:13 A&P Assessment and plan (1) Acute CHF (congestive heart failure): Patient with acute congestive heart failure symptoms on admission including elevated BNP, chest x-ray consistent with heart failure, shortness of breath. He is now in atrial fibrillation with rapid ventricular rate, being addressed with oral amiodarone as well as oral metoprolol. Continue Lasix 40 mg every 12 hours Presentation was also consistent with acute non-ST elevation myocardial infarction. He has been anticoagulated with Lovenox, once per day secondary to history of anemia. Aspirin and statin are being given Appreciate cardiology consultation Status: Acute Qualifiers: Heart failure type: systolic Qualified Code(s): I50.21 - Acute systolic (congestive) heart failure (2) Acute and chronic respiratory failure with hypoxia: As manifested by low PO2, respiratory distress, need for oxygen to prevent hypoxia. Secondary to heart failure. Status: Acute (3) Severe aortic stenosis: Consideration for valve replacement, open, at [facility] Status: Acute (4) Coronary artery disease: Metoprolol, aspirin, statin. Patient with 85% RCA lesion that will require bypass surgery when valve is r eplaced Status: Acute (5) Atrial fibrillation: History of paroxysmal atrial fibrillation. Continue amiodarone, and metoprolol as tolerated. Status: Acute Qualifiers: Atrial fibrillation type: paroxysmal Qualified Code(s): I48.0 - Paroxysmal atrial fibrillation (6) Diabetes mellitus: Sliding scale insulin Status: Acute (7) Hypertension: Continue metoprolol Status: Acute Qualifiers: Hypertension type: essential hypertension Qualified Code(s): I10 - Essential (primary) hypertension (8) Hyperlipidemia: Continue statin Status: Acute Additional A&P Information History of anemia, and blood transfusion within the last month. Protonix 40 mg once daily. Full code Lovenox for DVT prophylaxis Note that his rapid Covid is negative. Attestations Medical Necessity Statement*: Needs continued hospital stay for diuresis secondary to acute congestive heart failure, non-ST elevation myocardial infarction, severe aortic stenosis Coding Level of Care Code Acute Heating Plant Superintendent for Tomas Griffin Diagnoses Acute CHF (congestive heart failure) I50.21 Heart failure type: systolic Acute and chronic respiratory failure with hypoxia J96.21 Severe aortic stenosis I35.0 Coronary artery disease I25.10 Atrial fibrillation I48.0 Atrial fibrillation type: paroxysmal Diabetes mellitus E11.9 Hypertension I10 Hypertension type: essential hypertension Hyperlipidemia E78.5
[2020-11-13 17:31] LABS: Glucose Point of Care 156 mg/dL (70-110)
[2020-11-13] MEDS: FUROsemide 10 mg/mL SDV 2mL 20 MG IVP (18:23)
[2020-11-13 20:18] LABS: Glucose Point of Care 74 mg/dL (70-110)
[2020-11-13] MEDS: enoxaparin 100 mg/mL Syringe 90 MG SUBCUT (21:54)
--- NOTE | 2020-11-13 22:43 | PC.NURSE ---
Bedside report received from Zane RN. patient is resting in bed, A & O, no C/O of pain or needs at this time.
[2020-11-14] VITALS (13 sets, daily range): BP systolic 94–130; BP diastolic 58–87; PULSE 85–111; RESP 18–34; TEMP 36.1–36.8; O2SAT 85–96; BMI 28.2
[2020-11-14 05:09] LABS: Basophils # 0.1 10^3/uL (0.0-0.1); Basophils % 0.6 %; Eosinophils # 0.2 10^3/uL (0.0-0.8); Eosinophils % 1.1 %; Hemoglobin 13.4 g/dL (11.7-16.6); Lymphocytes # 3.7 10^3/uL (0.8-4.8); Lymphocytes % 27.4 %; Mean Corpuscular HGB Conc 31.9 g/dL (30.0-36.0); Mean Corpuscular Hemoglobin 28.8 pg (28.0-34.0); Mean Corpuscular Volume 90.3 fL (80-94); Mean Platelet Volume 11.1 fL (7.4-10.4); Monocytes # 1.3 10^3/uL (0.2-0.9); Monocytes % 9.6 %; Neutrophils # 8.22 10^3/uL (1.8-7.7); Neutrophils % 61.1 %; Nucleated Red Blood Cells % 0 %; Platelet Count 227 10^3/cmm (130-400); Red Blood Count 4.65 10^6/uL (4.1-5.3); Red Cell Distribution Width 15.9 % (12.1-15.1); White Blood Count 13.5 10^3/uL (4.0-10.0)
[2020-11-14 05:35] LABS: Anion Gap 14.6 (5-19); Blood Urea Nitrogen 24 mg/dL (8-23); Calcium 9.1 mg/dL (8.5-10.5); Carbon Dioxide 28 mmol/L (22-29); Chloride 101 mmol/L (98-107); Glucose 91 mg/dL (65-115); Magnesium 1.8 mg/dL (1.7-2.3); NT Pro B Type Natriuretic Pept 13095 pg/mL (0-450); Osmolality Calculated 294 mOsm/kg (285-295); Potassium 3.6 mmol/L (3.5-5.1); Sodium 140 mmol/L (136-145)
[2020-11-14] MEDS: aspirin 81 mg EC Tablet PO (05:42)
[2020-11-14] MEDS: sertraline 50 mg Tablet PO (05:42)
[2020-11-14] MEDS: atorvastatin 40 mg Tablet PO (05:42)
[2020-11-14 06:33] LABS: Bilirubin Urine 1+ (Negative); Blood Urine Trace (Negative); Glucose Urine UA Norm (Normal); Ketones Urine 1+ (Negative); Leukocyte Esterase Urine Negative (Negative); Nitrate Urine Negative (Negative); Protein Urine Neg (Negative); RBC Urine 0-4 /hpf (0-2); Urine Appearance SL Hazy (CLEAR); Urine Color Dark Yellow (Yellow); Urobilinogen Urine 1 mg/dL (Negative); pH Urine 5 (5-7)
[2020-11-14 06:34] LABS: Add Urine Culture? No; Bacteria Urine 1+ /hpf; Calcium Oxalate Crystals Urine 25-40 /hpf; Mucus Urine 3+ /hpf
[2020-11-14 06:45] LABS: Glucose Point of Care 104 mg/dL (70-110)
--- NOTE | 2020-11-14 07:05 | P.PN_ITS ---
Subjective Subjective: Interval history: He feels better. HR better controlled on telemetry but remains in A. fib. Medications: Reviewed: Yes Vitals/I&O/Wt Last Vital Signs Temp 98.2 F 11/14/20 04:33 Pulse 99 11/14/20 05:57 Resp 28 H 11/14/20 04:33 BP 104/78 11/14/20 04:33 Pulse Ox 94 11/14/20 04:33 11/13/20 11/14/20 11/14/20 22:59 06:59 14:59 Intake Total 120 / 772 Output Total 200 / 250 Balance -80 / 522 Weight last 48 hrs Weight 196 lb 9.6 oz Weight 196 lb 9.6 oz Weight 192 lb 11.2 oz Physical Exam Narrative: EXAM NARRATIVE: GENERAL: elderly pleasant man sitting in bed in no acute distress HEENT: Pupils equal round reactive to light. No pallor or icterus. NECK: No JVD, No carotid bruit. CARDIOVASCULAR SYSTEM: S1-S2 irregular, soft S2. tachycardia+. Grade 3/6 harsh cresendo murmur in aortic area RESPIRATORY SYSTEM: Chest clear to auscultation except decreased at bases. No wheezes. ABDOMEN: Soft, nontender and nondistended. Normal bowel sounds present. EXTREMITIES: No cyanosis or clubbing. No edema. DRILLER PORTABLE: Patient is alert oriented ?3. No focal neurological deficits. SKIN: Normal turgor and temperature. No breakdown, rash or nail changes noted. PSYCH: Normal insight and judgment. Data : 11/14/20 04:24 11/14/20 04:24 A&P Assessment and plan (1) Acute CHF (congestive heart failure): Decompensated CHF in setting of critical -Transition to PO lasix -I spoke to Dr. De Jesus. There were no beds available at [facility] and patient already has an appointment scheduled with CV surgery next week. Earliest available. -Plan is to manage his decompensated CHF and A. fib with RVR here and then follow-up with CV surgery next week as an outpatient. -closely monitor on telemetry and for electrolytes abnormalities. -Keep K> 4 and Mg >2. The plan was discussed with the patient. Possible discharge in morning. Status: Acute Qualifiers: Heart failure type: systolic Qualified Code(s): I50.21 - Acute systolic (congestive) heart failure (2) Severe aortic stenosis: Critical with single vessel CAD -being evaluated for SAVR with single vessel CABG at [facility] and has appointment next week. Status: Acute (3) Atrial fibrillation: H/o paroxysmal A. fib -Patient now in atrial fibrillation with rapid response . On amiodarone 400 mg TID. start on digoxin -currently on lovenox. -continue low dose metoprolol. -History of GI bleed however hemoglobin has been stable here with no active bleeding. -May transition to p.o. Eliquis today Status: Acute Qualifiers: Atrial fibrillation type: paroxysmal Qualified Code(s): I48.0 - Paroxysmal atrial fibrillation (4) NSTEMI (non-ST elevated myocardial infarction): Likely Type 2 in setting of severe and CHF Status: Acute (5) Hypertension: Status: Acute Qualifiers: Hypertension type: essential hypertension Qualified Code(s): I10 - Essential (primary) hypertension Additional A&P Information CAD : Single vessel CAD paroxysmal SVT noted on telemetry on admission ID DM-2 Hyperlipidemia H/o GI bleed Thank you for allowing me to participate in patient's care. Please feel free to call with questions or concerns. Attestations Medical Necessity Statement*: needs hospital stay for decompensated CHF Time Spent in Patient Care: 16 - 35 minutes (>than 50% of time spent in counselling and/or direct pt care on unit) . Coding Level of Care Code Acute Cash Control Specialist for Tomas Griffin Diagnoses Acute CHF (congestive heart failure) I50.21 Heart failure type: systolic Severe aortic stenosis I35.0 Atrial fibrillation I48.0 Atrial fibrillation type: paroxysmal NSTEMI (non-ST elevated myocardial infarction) I21.4 Hypertension I10 Hypertension type: essential hypertension
[2020-11-14] MEDS: magnesium sulfate premix 2 GM/50 ML PIGGYBACK IV (07:49)
[2020-11-14] MEDS: potassium chloride ER 10 mEq Tablet 20 MEQ PO (07:56)
[2020-11-14] MEDS: pantoprazole DR 40 mg Tablet PO (07:57)
[2020-11-14] MEDS: metoprolol tartrate 25 mg Tablet PO ×2 (07:57→18:05)
[2020-11-14] MEDS: FUROsemide 40 mg Tablet PO ×2 (07:58→15:45)
[2020-11-14] MEDS: amiodarone 200 mg Tablet 400 MG PO ×3 (08:00→20:57)
--- NOTE | 2020-11-14 10:21 | XR_ITS ---
WS: [id number] Portable AP upright chest, 11/14/2020 Clinical Data: follow up heart failiure Comparison: Portable chest, 11/12/2020 Findings: The heart is enlarged and there are small bilateral effusions. The pulmonary vascularity is increased. The aortic arch and descending aorta show calcification and tortuosity. Monitor leads are on the chest wall. There is vertebroplasty cement in the T12 vertebral body. XR/XR chest 1V portable [id number] Impression: 1. No change in congestive heart failure with cardiomegaly and pulmonary vascul ar congestion. 2. No change in atherosclerosis and bilateral pleural effusions.
--- NOTE | 2020-11-14 10:22 | P.PN_ITS ---
Subjective Subjective: Interval history: Omari reports he feels better. Less short of breath. No coughing. He is still requiring 5 L oxygen. No chills. Cardiology has given him a dose of digoxin, and continued amiodarone for his atrial fibrillation with rapid ventricular rate. Medications: Reviewed: Yes Vitals/I&O/Wt Last Vital Signs Temp 97.0 F L 11/14/20 08:00 Pulse 100 11/14/20 08:42 Resp 22 H 11/14/20 08:00 BP 97/72 11/14/20 08:00 Pulse Ox 94 11/14/20 08:42 11/13/20 11/14/20 11/14/20 22:59 06:59 14:59 Intake Total 120 / 772 480 / 480 Output Total 200 / 250 Balance -80 / 522 480 / 480 Weight last 48 hrs Weight 89.176 kg Weight 89.176 kg Weight 87.407 kg Physical Exam Narrative: EXAM NARRATIVE: General exam no distress, currently on 5 L of oxygen. Neck is supple no lymphadenopathy thyromegaly Cardiovascular regular rate and rhythm with a 3/6 systolic murmur heard best in the aortic area Lungs crackles are again noted bibasilar Abdomen is soft nontender with positive bowel sounds. No obvious organomegaly Extremities no cyanosis clubbing or edema, cap refill brisk Data : 11/14/20 04:24 11/14/20 04:24 A&P Assessment and plan (1) Acute CHF (congestive heart failure): Patient with acute congestive heart failure symptoms on admission including elevated BNP, chest x-ray consistent with heart failure, shortness of breath. He is now in atrial fibrillation with rapid ventricular rate, being addressed with oral amiodarone as well as oral metoprolol. He received 1 dose of digoxin. Heart rate is coming under better control. Lasix has been transitioned to oral Presentation was also consistent with acute non-ST elevation myocardial infarction. He has been anticoagulated with Lovenox, once per day secondary to history of anemia. Aspirin and statin are being given Appreciate cardiology consultation Overall plan is medical stabilization, follow-up at [facility] for possible coronary artery bypass grafting/valve replacement Aggressive diuresis has been difficult in the face of severe aortic stenosis with borderline blood pressures. Status: Acute Qualifiers: Heart failure type: systolic Qualified Code(s): I50.21 - Acute systolic (congestive) heart failure (2) Acute and chronic respiratory failure with hypoxia: As manifested by low PO2, respiratory distress, need for oxygen to prevent hypoxia. Secondary to heart failure. Wean as tolerated Repeat chest x-ray Check procalcitonin level as white blood cell count still slightly elevated. Note that urinalysis was negative. Status: Acute (3) Severe aortic stenosis: Consideration for valve replacement, open, at [facility] Status: Acute (4) Coronary artery disease: Metoprolol, aspirin, statin. Patient with 85% RCA lesion that will require bypass surgery when valve is replaced Status: Acute (5) Atrial fibrillation: History of paroxysmal atrial fibrillation. Continue amiodarone, and metoprolol as tolerated. Transition to Eliquis Status: Acute Qualifiers: Atrial fibrillation type: paroxysmal Qualified Code(s): I48.0 - Paroxysmal atrial fibrillation (6) Diabetes mellitus: Sliding scale insulin Status: Acute (7) Hypertension: Continue metoprolol Status: Acute Qualifiers: Hypertension type: essential hypertension Qualified Code(s): I10 - Essential (primary) hypertension (8) Hyperlipidemia: Continue statin Status: Acute Additional A&P Information History of anemia, and blood transfusion within the last month. Protonix 40 mg once daily. Full code Lovenox for DVT prophylaxis Note that his rapid Covid is negative. Attestations Medical Necessity Statement*: Needs continued hospitalization for close monitoring secondary to heart failure requiring oxygen, A. 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
[2020-11-14 11:10] LABS: Procalcitonin 0.09 ng/mL (0-0.5)
[2020-11-14] MEDS: lidocaine 1% 5 ML in potassium chloride premix 100 ML 50 ML IV (11:12)
[2020-11-14] MEDS: digoxin 250 mcg/ml INJ 2 mL 500 MCG IVP (11:14)
[2020-11-14 12:11] LABS: Glucose Point of Care 150 mg/dL (70-110)
--- NOTE | 2020-11-14 12:51 | PC.NURSE ---
Addendum entered by Jossue Stallings RN 11/14/20 14:39: add note: Dr. Vazquez is on the floor and noted her pt converted to sinus rhythm in tele monitor. Original Note: Pt converted to Sinus rhythm hr-upper 100s-105s BP-96/58. Pt denies any concerns at this time.
--- NOTE | 2020-11-14 15:45 | PC.NURSE ---
Oxygenation Noted pt SpO2-85 to 88% on 3 L NC. HR in 109,Sinus rhythm; BP-105/74.Pt is talking to his dgtr at bedside.Pt is not on acute respiratory distress. lungs are diminished with fine coarse crackles on lower lobes. RT is notified and verified pt's oxygenation. RT Kiki applied oxymask shortly and then change to 10 L/min of high flow nasal cannula. Pt spO2 ranges on 90-91% on high flow 10 L/min high flow NC. Dr. Gasca is notified via phone and informed of pt's status. Received telephone order readback to give 60 mg of IVP lasix one time.
[2020-11-14 17:02] LABS: Glucose Point of Care 214 mg/dL (70-110)
[2020-11-14] MEDS: FUROsemide 10 mg/mL SDV 10mL 60 MG IVP (18:45)
[2020-11-14] MEDS: ondansetron 2 mg/ML SDV 2 mL 4 MG IVP (19:54)
[2020-11-14 20:26] LABS: Glucose Point of Care 351 mg/dL (70-110)
[2020-11-14] MEDS: FUROsemide 10 mg/mL SDV 2mL 20 MG IVP (20:56)
[2020-11-14 21:04] LABS: Hematocrit 42.9 % (42.0-52.0); Hemoglobin 13.8 g/dL (11.7-16.6)
--- NOTE | 2020-11-14 21:08 | PC.NURSE ---
Around 2029: Patient having nausea, vomited small amount of blood tinged emesis. Notified Dr. Garay, orders recevied to order H&H, see orders. Notified Dr. Hein of patients condition. Orders received, see JUL.
[2020-11-14 21:53] LABS: ABG PCO2 39.9 mmHg (35-45); ABG PH Result 7.44 (7.35-7.45); Base Excess ABG 2.4 mmol/L (-2.0-2.0); Blood Gas Allen Test Pos; Blood Gas Sample Type Arterial; HCO3 ABG 26.8 mmol/L (22-26); PO2 ABG 93.1 mmHg (80.0-100.0)
[2020-11-14 21:57] LABS: Blood Gas Operator Identificat HARKR; Blood Gas Sample Site Radial, right; Oxygen Device BIPAP
[2020-11-14] MEDS: nitroglycerin 1 gm/inch oint Pkt 0.5 INCH TOPICAL (22:53)
[2020-11-15] VITALS (17 sets, daily range): BP systolic 95–130; BP diastolic 68–113; PULSE 68–102; RESP 16–28; TEMP 36.3–36.7; O2SAT 90–96
[2020-11-15 05:27] LABS: Basophils # 0.1 10^3/uL (0.0-0.1); Basophils % 0.7 %; Eosinophils # 0.1 10^3/uL (0.0-0.8); Eosinophils % 0.6 %; Hematocrit 42.3 % (42.0-52.0); Hemoglobin 13.4 g/dL (11.7-16.6); Lymphocytes # 2.8 10^3/uL (0.8-4.8); Lymphocytes % 22.1 %; Mean Corpuscular HGB Conc 31.7 g/dL (30.0-36.0); Mean Corpuscular Hemoglobin 28.5 pg (28.0-34.0); Mean Platelet Volume 10.8 fL (7.4-10.4); Monocytes # 1.3 10^3/uL (0.2-0.9); Monocytes % 9.8 %; Neutrophils # 8.49 10^3/uL (1.8-7.7); Neutrophils % 66.4 %; Nucleated Red Blood Cells % 0 %; Platelet Count 278 10^3/cmm (130-400); Red Cell Distribution Width 15.7 % (12.1-15.1); White Blood Count 12.8 10^3/uL (4.0-10.0)
[2020-11-15] MEDS: atorvastatin 40 mg Tablet PO (05:33)
[2020-11-15] MEDS: sertraline 50 mg Tablet PO (05:33)
[2020-11-15] MEDS: aspirin 81 mg EC Tablet PO (05:33)
[2020-11-15 05:34] LABS: Anion Gap 13.4 (5-19); Blood Urea Nitrogen 38 mg/dL (8-23); Calcium 8.6 mg/dL (8.5-10.5); Carbon Dioxide 31 mmol/L (22-29); Chloride 98 mmol/L (98-107); Glucose 125 mg/dL (65-115); Osmolality Calculated 297 mOsm/kg (285-295); Potassium 4.4 mmol/L (3.5-5.1); Sodium 138 mmol/L (136-145)
[2020-11-15 06:39] LABS: Glucose Point of Care 122 mg/dL (70-110)
[2020-11-15] MEDS: metoprolol tartrate 25 mg Tablet PO ×2 (08:45→17:45)
[2020-11-15] MEDS: potassium chloride ER 10 mEq Tablet 20 MEQ PO (08:45)
[2020-11-15] MEDS: amiodarone 200 mg Tablet 400 MG PO ×3 (08:45→20:07)
[2020-11-15] MEDS: FUROsemide 40 mg Tablet PO ×2 (08:45→17:45)
[2020-11-15] MEDS: pantoprazole DR 40 mg Tablet PO (08:46)
[2020-11-15] MEDS: nitroglycerin 1 gm/inch oint Pkt 0.5 INCH TOPICAL ×2 (08:46→16:27)
[2020-11-15] MEDS: apixaban 5 mg Tablet PO ×2 (09:29→20:06)
[2020-11-15 11:39] LABS: Glucose Point of Care 388 mg/dL (70-110)
[2020-11-15 16:47] LABS: Glucose Point of Care 236 mg/dL (70-110)
[2020-11-15] MEDS: FUROsemide 10 mg/mL SDV 4mL 40 MG IVP (19:41)
--- NOTE | 2020-11-15 19:47 | PM.PN ---
Subjective Subjective: Interval history: I am just about ready to get through this . Gets easily dyspneic with exertion. Tolerated wearing BiPAP overnight, received additional Lasix last night. Did not enjoy the BiPAP. Encouraged him to wear it again anytime he takes a nap or sleeps. Vitals/I&O/Wt Last Vital Signs Temp 98.0 F 11/15/20 19:03 Pulse 98 11/15/20 19:03 Resp 27 H 11/15/20 19:03 BP 117/82 11/15/20 19:03 Pulse Ox 90 11/15/20 19:03 11/15/20 11/15/20 11/15/20 06:59 14:59 22:59 Intake Total 235 / 235 357 / 592 Output Total 375 / 900 270 / 270 350 / 620 Balance -375 / 215 -35 / -35 Weight last 48 hrs Weight 90.31 kg Weight 89.176 kg Weight 89.176 kg Physical Exam Narrative: EXAM NARRATIVE: Visited by Guest. Const: COMMON NORMALS: no acute distress and patient oriented x3 GENERAL APPEARANCE: frail appearing OTHER: Sitting up in bed. HENMT: COMMON NORMALS: oropharynx normal Neck/C-Spine: COMMON NORMALS: no JVD Resp: COMMON NORMALS: normal respiratory effort AUSCULTATION: crackles Laterality: bilateral Cardio: COMMON NORMALS: no JVD, regular rhythm, S1 normal heart sound present, S2 normal heart sound present and No murmurs present (Cardio) RHYTHM: regular rhythm HEART SOUNDS: S1 normal heart sound present and S2 normal heart sound present GI: COMMON NORMALS: Normal to inspection, nondistended, normoactive bowel sounds present, Soft to palpation and non-tender PALPATION: Yes Soft to palpation Extremity: COMMON NORMALS: no joint enlargement and no pedal edema Neuro: COMMON NORMALS: patient oriented x3 and moves all extremities Skin: COMMON NORMALS: no rashes or lesions noted GENERAL SKIN EXAM: no rashes or lesions noted Data : 11/15/20 04:40 11/15/20 04:40 A&P Assessment and plan (1) Acute CHF (congestive heart failure): Discussed with cardiology and with him. Additional Lasix were given last night, and was encouraged to wear BiPAP which he tolerated overnight. Encouraged him to wear further again today. Urine output not impressive, does appear to be -500 mL last 24 hours. Cardiology is giving additional Lasix dose this evening. Continue optimization of respiratory status in anticipation of possible CABG/valve replacement due to severe aortic stenosis. Patient with acute congestive heart failure symptoms on admission including elevated BNP, chest x-ray consistent with heart failure, shortness of breath. A. fib with RVR improving with oral amiodarone as well as oral metoprolol. He received 1 dose of digoxin. Presentation was also consistent with acute non-ST elevation myocardial infarction. He has been anticoagulated with Lovenox, once per day secondary to history of anemia. Aspirin and statin are being given Status: Acute Qualifiers: Heart failure type: systolic Qualified Code(s): I50.21 - Acute systolic (congestive) heart failure (2) Acute and chronic respiratory failure with hypoxia: As above. Currently on 12 L nasal cannula. Chest x-ray with persistent congestive heart failure with cardiomegaly and pulmonary vascular congestion. Crackles on exam. Rapid COVID-19 negative. WBC count mildly elevated, but procalcitonin entirely normal. Afebrile. D-dimer pretty much normal at 0.62. Is on anticoagulation. Low threshold for additional evaluation by CT in case of rising leukocytosis, fever, or other symptoms that may suggest pneumonia. Status: Acute (3) Severe aortic stenosis: Consideration for valve replacement, open, at [facility] Status: Acute (4) Coronary artery disease: Metoprolol, aspirin, statin. Patient with 85% RCA lesion that will require bypass surgery when valve is replaced Status: Acute (5) Atrial fibrillation: History of paroxysmal atrial fibrillation. Continue [facility]arone, and [facility] as tolerated[facility]: Acute Qualifiers: Atrial fibrillation type: paroxysmal Qualified Code(s): I48.0 - Paroxysmal atrial fibrillation (6) Diabetes mellitus: Sliding scale insulin Status: Acute (7) Hypertension: Continue metoprolol Status: Acute Qualifiers: Hypertension type: essential hypertension Qualified Code(s): I10 - Essential (primary) hypertension (8) Hyperlipidemia: Continue statin Status: Acute Additional A&P Information History of anemia, and blood transfusion within the last month. Protonix 40 mg once daily. Monitor hemoglobin. Full code Lovenox for DVT prophylaxis Note that his rapid Covid is negative. Attestations Medical Necessity Statement*: Continue admission for assessment management of hypoxic respiratory failure, congestive heart failure with severe aortic stenosis, optimization of control of A. fib with RVR. Coding Level of Care Code Acute Nurse Advisor for Chg Fwd Diagnoses Acute CHF (congestive heart failure) I50.21 Heart failure type: systolic Acute and chronic respiratory failure with hypoxia J96.21 Severe aortic stenosis I35.0 Coronary artery disease I25.10 Atrial fibrillation I48.0 Atrial fibrillation type: paroxysmal Diabetes mellitus E11.9 Hypertension I10 Hypertension type: essential hypertension Hyperlipidemia E78.5
[2020-11-15 20:02] LABS: Glucose Point of Care 302 mg/dL (70-110)
[2020-11-15] MEDS: acetaminophen 325 mg Tablet 650 MG PO (20:06)
--- NOTE | 2020-11-15 20:52 | P.PN_ITS ---
Subjective Subjective: Interval history: Patient's O2 requirement has increased. Last night received IV lasix and was put on BiPAP. Denies chest pain Vitals/I&O/Wt Last Vital Signs Temp 98.0 F 11/15/20 19:03 Pulse 98 11/15/20 19:03 Resp 27 H 11/15/20 19:03 BP 117/82 11/15/20 19:03 Pulse Ox 90 11/15/20 19:03 11/15/20 11/15/20 11/15/20 06:59 14:59 22:59 Intake Total 235 / 235 357 / 592 Output Total 375 / 900 270 / 270 350 / 620 Balance -375 / 215 -35 / -35 7 / Weight last 48 hrs Weight 199 lb 1.6 oz Weight 196 lb 9.6 oz Weight 196 lb 9.6 oz Physical Exam Narrative: EXAM NARRATIVE: GENERAL: elderly pleasant man sitting in bed in no acute distress HEENT: Pupils equal round reactive to light. No pallor or icterus. NECK: No JVD, No carotid bruit. CARDIOVASCULAR SYSTEM: S1-S2 irregular, soft S2. tachycardia+. Grade 3/6 harsh cresendo murmur in aortic area RESPIRATORY SYSTEM: Chest clear to auscultation except decreased at bases. No wheezes. ABDOMEN: Soft, nontender and nondistended. Normal bowel sounds present. EXTREMITIES: No cyanosis or clubbing. No edema. 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 No focal neurological deficits. SKIN: Normal turgor and temperature. No breakdown, rash or nail changes noted. PSYCH: Normal insight and judgment. Data : 11/16/20 04:30 11/16/20 04:30 A&P Assessment and plan (1) Acute CHF (congestive heart failure): Decompensated CHF in setting of critical -Will need IV Lasix. Can transition from p.o. to IV Lasix. -Plan was to see CT surgery as outpatient see hospital where he sees his cardiology team however given his worsening breathing status, may have to transfer him to [facility]. -closely monitor on telemetry and for electrolytes abnormalities. -Keep K> 4 and Mg >2. -May need escalation to ICU care if that is keeps worsening Status: Acute Qualifiers: Heart failure type: systolic Qualified Code(s): I50.21 - Acute systolic (congestive) heart failure (2) Severe aortic stenosis: Critical with single vessel CAD -being evaluated for SAVR with single vessel CABG at [facility] however because of no bed availability he will be managed here till can be transferred. Status: Acute (3) Atrial fibrillation: H/o paroxysmal A. fib -Patient now in atrial fibrillation with rapid response . On current medications. -continue low dose metoprolol. -History of GI bleed however hemoglobin has been stable here with no active bleeding. On p.o. Eliquis. Status: Acute Qualifiers: Atrial fibrillation type: paroxysmal Qualified Code(s): I48.0 - Paroxysmal atrial fibrillation (4) NSTEMI (non-ST elevated myocardial infarction): Likely Type 2 in setting of severe and CHF Status: Acute (5) Hypertension: Status: Acute Qualifiers: Hypertension type: essential hypertension Qualified Code(s): I10 - Essential (primary) hypertension Additional A&P Information CAD : Single vessel CAD paroxysmal SVT noted on telemetry on admission ID [id number] Hyperlipidemia H/o GI bleed Thank you for allowing me to participate in patient's care. Please feel free to call with questions or concerns. Attestations Medical Necessity Statement*: Care expected to cross 2 midnights. Coding Level of Care Code Acute Import Coordinator for Tomas Girffin Diagnoses Acute CHF (congestive heart failure) I50.21 Heart failure type: systolic Severe aortic stenosis I35.0 Atrial fibrillation I48.0 Atrial fibrillation type: paroxysmal NSTEMI (non-ST elevated myocardial infarction) I21.4 Hypertension I10 Hypertension type: essential hypertension
[2020-11-16] VITALS (67 sets, daily range): BP systolic 87–110; BP diastolic 62–80; PULSE 79–104; RESP 20–37; TEMP 36.6–36.7; O2SAT 86–96
[2020-11-16 05:02] LABS: Basophils # 0.1 10^3/uL (0.0-0.1); Basophils % 0.5 %; Eosinophils # 0.3 10^3/uL (0.0-0.8); Eosinophils % 2.1 %; Hematocrit 41.3 % (42.0-52.0); Hemoglobin 13.2 g/dL (11.7-16.6); Lymphocytes # 2.5 10^3/uL (0.8-4.8); Lymphocytes % 18.7 %; Mean Corpuscular Hemoglobin 28.6 pg (28.0-34.0); Mean Corpuscular Volume 89.4 fL (80-94); Mean Platelet Volume 10.7 fL (7.4-10.4); Monocytes # 1.3 10^3/uL (0.2-0.9); Monocytes % 9.7 %; Neutrophils # 9.17 10^3/uL (1.8-7.7); Neutrophils % 68.6 %; Nucleated Red Blood Cells % 0 %; Platelet Count 304 10^3/cmm (130-400); Red Blood Count 4.62 10^6/uL (4.1-5.3); Red Cell Distribution Width 15.6 % (12.1-15.1); White Blood Count 13.4 10^3/uL (4.0-10.0)
[2020-11-16 05:17] LABS: Anion Gap 13.2 (5-19); Blood Urea Nitrogen 41 mg/dL (8-23); Calcium 8.3 mg/dL (8.5-10.5); Carbon Dioxide 30 mmol/L (22-29); Chloride 98 mmol/L (98-107); Glucose 148 mg/dL (65-115); Osmolality Calculated 297 mOsm/kg (285-295); Potassium 4.2 mmol/L (3.5-5.1); Sodium 137 mmol/L (136-145)
[2020-11-16] MEDS: sertraline 50 mg Tablet PO (05:24)
[2020-11-16] MEDS: atorvastatin 40 mg Tablet PO (05:24)
[2020-11-16] MEDS: aspirin 81 mg EC Tablet PO (05:24)
[2020-11-16 06:34] LABS: Glucose Point of Care 166 mg/dL (70-110)
[2020-11-16] MEDS: FUROsemide 40 mg Tablet PO (07:58)
--- NOTE | 2020-11-16 08:46 | CTR_ITS ---
PROCEDURE INFORMATION: Exam: CT Chest Without Contrast; Diagnostic Exam date and time: 11/16/2020 8:46 AM Age: 75 years old Clinical indication: Shortness of breath; Additional info: Hypoxia TECHNIQUE: Imaging protocol: Diagnostic computed tomography of the chest without contrast. Radiation optimization: All CT scans at this facility use at least one of these dose optimization techniques: automated exposure control; mA and/or kV adjustment per patient size (includes targeted exams where dose is matched to clinical indication); or iterative reconstruction. COMPARISON: CR XR chest 1V portable [id number] 11/14/2020 11:25 AM RADIATION DOSE METRICS: Total DLP (mGy-cm): 984.29 FINDINGS: Lungs: COPD and interstitial disease. Multifocal bilateral airspace disease, with a dominant perihilar component. The differential diagnosis includes pulmonary edema, aspiration, and bronchopneumonia. Pleural spaces: Prominent bilateral pleural effusions. Heart: Cardiomegaly with coronary artery, aortic root, and mitral annular calcifications. Aorta: Calcification and ectasia of the thoracic aorta. Lymph nodes: Multiple lymph nodes including 3.0 x 1.8 by 1.6 cm precarinal lymph node. Upper abdomen: Cholelithiasis. 2.6 cm right renal cyst. Bones/joints: Dextroscoliosis and degenerative change. Osteopenia and T12 vertebral plasty. Soft tissues: Subcutaneous edema. CT/CT chest wo con [id number] IMPRESSION: 1. COPD and interstitial disease. 2. Multifocal bilateral airspace disease, with a dominant perihilar component. The differential diagnosis includes pulmonary edema, aspiration, and bronchopneumonia. 3. Prominent bilateral pleural effusions. 4. Additional findings as described above. COMMENTS: Consistent with the [employer]'s Incidental Findings Committee white paper (J Am Sophie Radiol 2018): Any incidental renal lesion less than 1 cm or classified as too small to characterize, or any incidental cystic renal lesion characterized as simple-appearing, is likely benign. No follow-up imaging is recommended for these lesions per consensus recommendations based on imaging criteria. Radiation Dose CTDIVOL = (mGy): DLP = 984.29 (mGy-cm)
[2020-11-16] MEDS: amiodarone 200 mg Tablet 400 MG PO ×2 (09:27→17:51)
[2020-11-16] MEDS: potassium chloride ER 10 mEq Tablet 20 MEQ PO (09:27)
[2020-11-16] MEDS: pantoprazole DR 40 mg Tablet PO (09:27)
[2020-11-16] MEDS: enoxaparin 100 mg/mL Syringe 90 MG SUBCUT ×2 (09:28→20:55)
[2020-11-16] MEDS: metoprolol tartrate 25 mg Tablet PO (09:28)
[2020-11-16 11:33] LABS: Glucose Point of Care 329 mg/dL (70-110)
[2020-11-16] MEDS: levoFLOXacin 750 mg Tablet PO (14:01)
--- NOTE | 2020-11-16 14:33 | PC.NURSE ---
amioderone 400 mg due to be given.bp92/64 (map 73).dr sanchez notifiied.he instructed to hold the amioderone until transfer to icu and pt began on pressors
[2020-11-16] MEDS: ondansetron 2 mg/ML SDV 2 mL 4 MG IVP (15:23)
[2020-11-16] MEDS: FUROsemide 100 MG in sodium chloride 0.9% 40 ML IV ×2 (16:43→23:05)
[2020-11-16 17:09] LABS: Glucose Point of Care 225 mg/dL (70-110)
[2020-11-16] MEDS: ALPRAZolam 0.5 mg Tablet 0.25 MG PO (17:53)
--- NOTE | 2020-11-16 18:46 | XRR_ITS ---
PROCEDURE INFORMATION: Exam: XR Chest Exam date and time: 11/16/2020 6:46 PM Age: 75 years old Clinical indication: Condition or disease; Other: Post thoracentesis; Prior surgery TECHNIQUE: Imaging protocol: XR of the chest. Views: 1 view. COMPARISON: CT chest con [id number] 11/16/2020 8:59 AM FINDINGS: There are bilateral pulmonary infiltrates. There is a left pleural effusion. There is no pneumothorax. The heart size is prominent likely due to the AP portable technique. XR/XR chest 1V portable [id number] IMPRESSION: Bilateral pulmonary infiltrates the with left pleural effusion.
--- NOTE | 2020-11-16 18:47 | PM.ACPR ---
Procedure/Consent Time out: Time Out Performed: Yes Consent: Consent for Procedure: Consent obtained from patient Procedure Narrative: Name of the procedure: Ultrasound guided right-sided thoracentesis. Indication: Large right-sided pleural effusion with respiratory distress and worsening hypoxia Anesthetics: Local anesthesia with 1% lidocaine. IV pain medication: None. Description of the procedure: The procedure was explained to the patient in detail including the risks and a consent was obtained. The right hemithorax was scanned with ultrasound to find a safe fluid pocket. Large free-flowing fluid was noted. There was no complexity. Following identification of the fluid pocket the site was marked. The site was cleaned using sterile technique. Lidocaine 1% was injected into the skin and the subcutaneous tissue. Subsequently, the periosteum in the parietal pleural was also anesthetized using lidocaine. The pleural space was entered in the posterior axillary line in the right ninth intercostal space. Straw-colored fluid was aspirated. 1700 cc of fluid was aspirated. Sample: The pleural fluid was sent for cell count and differential, pH, protein, LDH, albumin, Gram stain and culture, fungal stain and culture, AFB stain and culture and cytology. Postprocedure chest x-ray pending. Acute Procedures Epistaxis Control: Time out performed: Yes
--- NOTE | 2020-11-16 19:01 | P.PN_ITS ---
Subjective Subjective: Interval history: Feeling tired, today slight bit of cough, some thick sputum, with noted some blood-tinge by nursing staff. Denies chest pain. Easily fatigued. Today reports quite significant orthopnea, preferring to sit up in bed. Discussed with him CT chest, as well as findings, with again suspected congestive changes, pulmonary edema, with noted pleural effusions, although cannot rule out pneumonia. Discussed additional testing by PCR for COVID-19, although suspicion is lower, with negative rapid test, also with history of vaccination. Discussed also empiric coverage with Levaquin p.o. to avoid additional fluid overload, but also to give coverage for possibility, will lower, for additional endobronchial pneumonia with thick sputum production. Also discussed with him switching from Eliquis to therapeutic Lovenox. He is agreeable. Discussed with him as per discussion with pulmonary critical care physician, copier operator additional transfer to ICU, IV Lasix drip treatment, transient pressor support with close monitoring of blood pressures, oxygenation, concomitant NIPPV. He is agreeable to proceed. Discussed with him also that no beds are still available at [facility], with no opening anticipated in the nearest 48-72 hours. Discussed consideration of reaching out to [facility] to see if beds available there, he is agreeable. Discussed with transfer center, no beds available currently, but pending callback from cardiac surgeon to discuss placement on a waiting list. Vitals/I&O/Wt Last Vital Signs Temp 98.1 F 11/16/20 16:45 Pulse 100 11/16/20 17:00 Resp 31 H 11/16/20 17:00 BP 110/80 11/16/20 17:00 Pulse Ox 87 L 11/16/20 17:00 11/16/20 11/16/20 11/16/20 06:59 14:59 22:59 Intake Total 960 / 960 4.792 / 964.792 Output Total 675 / 1295 300 / 300 75 / 375 Balance -675 / -703 660 / 660 -70.208 / 589.792 Weight last 48 hrs Weight 89.721 kg Weight 91.127 kg Weight 90.31 kg Physical Exam Const: COMMON NORMALS: no acute distress and patient oriented x3 GENERAL APPEARANCE: frail appearing OTHER: Sitting up in bed. HENMT: COMMON NORMALS: oropharynx normal Neck/C-Spine: COMMON NORMALS: no JVD Resp: COMMON NORMALS: normal respiratory effort AUSCULTATION: crackles Laterality: bilateral Cardio: COMMON NORMALS: no JVD, regular rhythm, S1 normal heart sound present, S2 normal heart sound present and No murmurs present (Cardio) RHYTHM: regular rhythm HEART SOUNDS: S1 normal heart sound present and S2 normal heart sound present GI: COMMON NORMALS: Normal to inspection, nondistended, normoactive bowel sounds present, Soft to palpation and non-tender PALPATION: Yes Soft to palpation Extremity: COMMON NORMALS: no joint enlargement and no pedal edema Neuro: COMMON NORMALS: patient oriented x3 and moves all extremities Skin: COMMON NORMALS: no rashes or lesions noted GENERAL SKIN EXAM: no rashes or lesions noted Urinary Catheter Management^: Crowe: Cath Placed During This Visit: yes Reason for Continuing Indwelling Catheter: Accurate Measurement of Urinary Out put in Critically Ill Patients Urinary Catheter Date of Insertion: 11/16/20 Urinary Catheter Time of Insertion: 17:11 Data : 11/16/20 04:30 11/16/20 04:30 A&P Assessment and plan (1) Acute CHF (congestive heart failure): Worsened hypoxia today, oxygen requirement up to 15 L by high flow cannula, obtain CT chest with noted multifocal bilateral airspace disease with intermittent perihilar component. Recommend bilateral pleural effusions. Discussed with him, discussed with cardiology, obtained consultation with pulmonary critical care. So far he has had no cough, with significant orthopnea today, with noncritical aortic stenosis, with congestive changes, with pleural effusions, suspicious stabilized for pulmonary edema secondary to CHF, secondary to critical aortic stenosis. Today he states he is coughing little bit, producing some thick phlegm. We requested for COVID-19 PCR, but this is less likely given he remains afebrile, lacks other symptoms, with negative rapid test, and has been vaccinated. Discussed with him that we also started e mpirically on oral Levaquin so as to avoid fluid overload but provide coverage in case of some bronchopneumonia. If his oxygen requirement has been progressively worsening, with sluggish response to oral diuretics with intermittent IV pushes, with soft blood pressures, as per discussion with cardio logy with him he is transferred to intensive care unit for close monitoring, initiation of treatment with Lasix drip with pressor support as needed. Transiently on Levophed, however, blood pressure is doing better, weaned off. Multiple discussions today he is encouraged to wear CPAP, but he does get claustrophobic. We have ordered some Xanax for him to help with this. Seen by pulmonary critical care, underwent right-sided thoracentesis with removal of 1700 mL of fluid. Sent for laboratory analysis. As per discussion with [facility], still no beds available within at least the next 48-72 hours. As per discussion with patient he is agreeable to seek bed opening at other institutions, starting with [facility]. Per discussion with [facility] he is accepted to the care of cardiac surgeon Dr. Jorge and discussed his condition and work-up so far with cardiac critical care unit physician Dr. Landry. Pending bed opening. As per request he is transitioned to amiodarone drip. Dobutamine infusion at 2.5 may be needed in case of any additional signs that he is decompensating. Presentation was also consistent with acute non-ST elevation myocardial infarction. Thought to be type II. Aspirin and statin are being given. Beta- blockers discontinued. Status: Acute Qualifiers: Heart failure type: systolic Qualified Code(s): I50.21 - Acute systolic (congestive) heart failure (2) Acute and chronic respiratory failure with hypoxia: As above. Status: Acute (3) Severe aortic stenosis: Critical aortic aortic valve area 0.5, mean gradient 62. Mild MVR on echo in October. Echo requested here but not yet performed. Status: Acute (4) Coronary artery disease: Metoprolol, aspirin, statin. Patient with 85% RCA lesion that will require single-vessel CABG Status: Acute (5) Atrial fibrillation: History of paroxysmal atrial fibrillation. Continue amiodarone, and metoprolol as tolerated. Transition to Eliquis Status: Acute Qualifiers: Atrial fibrillation type: paroxysmal Qualified Code(s): I48.0 - Paroxysmal atrial fibrillation (6) Diabetes mellitus: Sliding scale insulin Status: Acute (7) Hypertension: Continue metoprolol Status: Acute Qualifiers: Hypertension type: essential hypertension Qualified Code(s): I10 - Essential (primary) hypertension (8) Hyperlipidemia: Continue statin Status: Acute Additional A&P Information History of anemia, and blood transfusion within the last month. Protonix 40 mg once daily. Monitor hemoglobin which so far remains stable with anticoagulation. Full code Attestations Medical Necessity Statement*: Continue admission for assessment management of hypoxic respiratory failure, CHF in the setting of critical aortic stenosis, underlying CAD, optimization of oxygenation, volume status, pending transfer to outside facility for surgical intervention including single-vessel CABG and aortic valve replacement. 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
--- NOTE | 2020-11-16 19:03 | P.CONIM_ITS ---
Providers/Reason For Consult Consulting Physician/Specialty*: Pulmonary critical care medicine Reason for Consult*: Worsening hypoxic respiratory failure Attending Physician: Alonzo Tavera Primary Care Provider: ESDRAS Sahni History of Present Illness History of Present Illness Omari Chairez is a 75 year old male who presented to the hospital on November 12 with worsening shortness of breath. The patient has history of severe aortic stenosis with a valve area of 0.5 cm?, mean gradient of 62. The patient also has coronary artery disease. He is following up with Dr. De Jesus in [place] for aortic valve replacement and CABG. The patient also has a history of A. fib and GI bleed. He was admitted to hospital in [place] about a month ago where he required blood transfusion for the lower GI bleed. Since the patient was admitted to the hospital, he has been receiving diuretics. However his respiratory status has been progressively getting worse. When the patient was admitted the chest x-ray revealed bilateral infiltrate with pleural effusion. The patient underwent a CT scan of the chest which revealed bilateral predominantly perihilar infiltrate and large bilateral pleural effusion. The patient is currently in ICU requiring 15 L oxygen. He is visibly tachypneic in the 30s. The patient is having cough, frothy sputum which is blood-tinged, tiredness and significant exertional shortness of breath. The patient has orthopnea. Bedside ultrasound revealed bilateral diffuse B-lines, large bilateral pleural effusion. Review of Systems Narrative: General: No fever or chills Skin: No rash HEENT: No nasal congestion, rhinitis, sinusitis, sneezing, hoarseness of voice Neck: There is no neck swelling, mass or swollen glands. Respiratory: Please see the HPI Cardiovascular: No chest pain, resting and exertional shortness of breath, no peripheral edema Gastrointestinal: No abdominal pain, nausea, vomiting, melena Musculoskeletal: No joint pain or swelling Neurological: Patient is awake alert and oriented x3, no paralysis, gross motor function is normal Psychiatric: No anxiety or depression Meds/Allergies Home Medications and Allergies Home Medications Medication Instructions Recorded Confirmed Last Taken Type aspirin 81 mg PO QAM 11/12/20 11/12/20 11/11/20 History atorvastatin 40 mg PO QAM 11/12/20 11/12/20 11/11/20 History dulaglutide [Trulicity] 1.5 mg SUBCUT Q7D 11/12/20 11/12/20 11/11/20 History ferrous sulfate 325 mg PO BID 11/12/20 11/12/20 11/11/20 History insulin degludec [Tresiba 47 unit SUBCUT QAM 11/12/20 11/12/20 11/11/20 History FlexTouch U-100] metformin 1,000 mg PO BID 11/12/20 11/12/20 11/11/20 History metoprolol tartrate 25 mg PO BID 11/12/20 11/12/20 11/11/20 History ondansetron HCl 4 mg PO Q6H PRN 11/12/20 11/12/20 11/11/20 History sertraline 50 mg PO QAM 11/12/20 11/12/20 11/11/20 History tramadol 50 mg PO QID PRN 11/12/20 11/12/20 Unknown History Allergies Allergy/AdvReac Type Severity Reaction Status Date / Time No Known Allergies Allergy Verified 11/12/20 08:49 Current Medications Current Medications Generic Name Dose Route Start Last Admin Trade Name Freq PRN Reason Stop Dose Admin Acetaminophen 650 mg 11/12/20 12:06 11/15/20 20:06 Acetaminophen 325 Mg Tablet PO 650 mg Q6H PRN Administration Mild/Mod Pain Or Temp >/= 101 Alprazolam 0.25 mg 11/16/20 13:04 11/16/20 17:53 Alprazolam 0.5 Mg Tablet PO 0.25 mg Q6H PRN Administration ANXIETY Amiodarone HCl 400 mg 11/13/20 15:00 11/16/20 17:51 Amiodarone 200 Mg Tablet PO 400 mg TID RABIA Administration Aspirin 81 mg 11/13/20 06:00 11/16/20 05:24 Aspirin 81 Mg Ec Tablet PO 81 mg QAM RABIA Administration Atorvastatin Calcium 40 mg 11/13/20 06:00 11/16/20 05:24 Atorvastatin 40 Mg Tablet PO 40 mg QAM RABIA Administration Enoxaparin Sodium 90 mg 11/16/20 09:00 11/16/20 09:28 Enoxaparin 100 Mg/Ml Syringe 1 mg/kg (90 mg) 90 mg SUBCUT Administration Q12H [facility] Furosemide 100 mg/ Sodium 50 mls @ 0 mls/hr 11/16/20 15:36 11/16/20 18:38 Chloride IV 10 mg/hr .Q0M RABIA 5 mls/hr Titration Protocol Per Protocol Norepinephrine Bitartrate 4 mg 254 mls @ 0 mls/hr 11/16/20 15:36 11/16/20 16:56 / Dextrose IV 2 mcg/min .Q0M RABIA 7.62 mls/hr Administration Protocol Per Protocol Insulin Aspart 0 unit 11/12/20 12:06 11/16/20 17:53 Insulin Aspart 100 Unit/1 Ml SUBCUT 6 unit WM&BEDTIME RABIA Administration Protocol Levofloxacin 750 mg 11/16/20 13:15 11/16/20 14:01 Levofloxacin 750 Mg Tablet PO 750 mg Q24H RABIA Administration Protocol Metoprolol Tartrate 25 mg 11/12/20 18:00 11/16/20 17:47 Metoprolol Tartrate 25 Mg Tablet PO Not Given BID RABIA Ondansetron HCl 4 mg 11/12/20 12:06 11/16/20 15:23 Ondansetron 2 Mg/Ml Sdv 2 Ml IVP 4 mg Q6H PRN Administration vomiting, or N/V if npo Pantoprazole Sodium 40 mg 11/13/20 09:00 11/16/20 09:[address] 40 Mg Tablet PO 40 mg DAILY RABIA Administration Potassium Chloride 20 meq 11/14/20 09:00 11/16/20 09:27 Potassium Chloride Er 10 Meq Tablet PO 20 meq DAILY RABIA Administration Sertraline HCl 50 mg 11/13/20 06:00 11/16/20 05:24 Sertraline 50 Mg Tablet PO 50 mg QAM RABIA Administration PFSH Acute PFSH: Medical History Atrial fibrillation Coronary artery disease Depression Diabetes mellitus Hyperlipidemia Hypertension NSTEMI (non-ST elevated myocardial infarction) Prostate cancer Severe aortic stenosis Surgical History History of hand surgery History of prostatectomy Family History Other CAD (coronary artery disease) Social History Smoking and tobacco status: former smoker Alcohol intake: never Vitals/I&O/Wt Last Vital Signs Temp 98.1 F 11/16/20 16:45 Pulse 100 11/16/20 17:00 Resp 31 H 11/16/20 17:00 BP 110/80 11/16/20 17:00 Pulse Ox 87 L 11/16/20 17:00 11/16/20 11/16/20 11/16/20 06:59 14:59 22:59 Intake Total 960 / 960 4.792 / 964.792 Output Total 675 / 1295 300 / 300 75 / 375 Balance -675 / -703 660 / 660 -70.208 / 589.792 Weight last 48 hrs Weight 197 lb 12.8 oz Weight 200 lb 14.4 oz Weight 199 lb 1.6 oz Physical Exam Narrative: EXAM NARRATIVE: General: Patient is awake alert and oriented. Tachypneic and in mild distress while resting Neck: Elevated jugular venous pressure Respiratory: Inspection: Scar in the left posterior hemithorax that looks like a previous thoracotomy scar Auscultation: Reduced breath sound at bilateral lung bases, crackles over the reduced area of breath sound, no wheezing or rhonchi Cardiovascular: Regular rate and rhythm, S1-S2 present, systolic murmur over the aortic area Abdomen: Soft, nontender, nondistended, positive bowel sound Musculoskeletal: No obvious joint deformity Skin: No rash Neuro: Mental status is normal, no gross cranial nerve deficit, normal motor and coordination. Urinary Catheter Management^: Crowe: Cath Placed During This Visit: yes Reason for Continuing Indwelling Catheter: Accurate Measurement of Urinary Output in Critically Ill Patients Urinary Catheter Date of Insertion: 11/16/20 Urinary Catheter Time of Insertion: 17:11 Data Other Data: Attestation for Other Data: I personally reviewed and interpreted the following: Other data: I have reviewed the patient's laboratory, microbiologic and radiologic data. Please see the HPI for detail A&P Assessment and plan (1) Acute and chronic respiratory failure with hypoxia: The patient has developed pulmonary edema and bilateral pleural effusion secondary to aortic stenosis. His oxygen requirement has progressively gotten worse since he was admitted to the hospital and is currently on 15 L oxygen. The patient needs aggressive diuresis. Patients with aortic stenosis are preload dependent. However, this patient is clearly volume overloaded. We will continue to diurese the patient. The goal is going to be 1 L negative overnight. Currently the patient is on a Lasix drip. We will adjust the Lasix drip based on his urine output. The patient needs to have close monitoring of the electrolytes. We need to keep the potassium over 4 and magnesium over 2. We will repeat a BMP and mag Rakel level tonight. The patient is currently only on 2 mcg of Levophed. I believe with improved hemodynamic after diuresis, the blood pressure will likely improve and the patient would not require any pressor support. If necessary, we will treat the patient with amiodarone bolus for A. fib. The patient is already anticoagulated. Status: Acute (2) Pleural effusion: The patient has large bilateral pleural effusion likely secondary to heart failure. For the time being, since the patient is tachypneic and requiring significant amount of oxygen, I will perform a right sided thoracentesis which will temporarily help him. However, the overall treatment plan is going to be adequate diuresis and subsequently valve replacement. Status: Acute (3) Severe aortic stenosis: The patient has severe aortic stenosis with calculated aortic valve area 0.5 cm?. Very high mean gradient. The patient is following up with his surgeon in [place] and is planned to undergo valve replacement as well as CABG. Thank you for the consultation. 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
--- NOTE | 2020-11-16 19:06 | PM.PN ---
Subjective Subjective: Interval history: His respiratory status has worsened further. He is requiring 15 L oxygen. Does not have a great toe urine output. Vitals/I&O/Wt Last Vital Signs Temp 98.1 F 11/16/20 16:45 Pulse 100 11/16/20 17:00 Resp 31 H 11/16/20 17:00 BP 110/80 11/16/20 17:00 Pulse Ox 87 L 11/16/20 17:00 11/16/20 11/16/20 11/16/20 06:59 14:59 22:59 Intake Total 960 / 960 4.792 / 964.792 Output Total 675 / 1295 300 / 300 75 / 375 Balance -675 / -703 660 / 660 -70.208 / 589.792 Weight last 48 hrs Weight 197 lb 12.8 oz Weight 200 lb 14.4 oz Weight 199 lb 1.6 oz Physical Exam Narrative: EXAM NARRATIVE: EXAM NARRATIVE: GENERAL: elderly pleasant man sitting in bed, on BiPAP HEENT: Pupils equal round reactive to light. No pallor or icterus. NECK: No JVD, No carotid bruit. CARDIOVASCULAR SYSTEM: S1-S2 irregular, soft S2. tachycardia+. Grade 3/6 harsh cresendo murmur in aortic area RESPIRATORY SYSTEM:Bilateral wheezing. No wheezes. ABDOMEN: Soft, nontender and nondistended. Normal bowel sounds present. EXTREMITIES: No cyanosis or clubbing. No edema. CURB WORKER: Patient is alert oriented ?3. No focal neurological deficits. SKIN: Normal turgor and temperature. No breakdown, rash or nail changes noted. PSYCH: Normal insight and judgment. Urinary Catheter Management^: Crowe: Cath Placed During This Visit: yes Reason for Continuing Indwelling Catheter: Accurate Measurement of Urinary Output in Critically Ill Patients Urinary Catheter Date of Insertion: 11/16/20 Urinary Catheter Time of Insertion: 17:11 Data : 11/16/20 04:30 11/16/20 04:30 A&P Assessment and plan (1) Acute CHF (congestive heart failure): Decompensated CHF in setting of critical -Transfer to ICU. Primary team checked with [facility] and they still do not have any bed availability. Has been transitioned to [facility]. Monitor closely his BP as can decompensate quickly with critical Aortic stenosis. -Will recommend transferring as CT surgery team not available -closely monitor on telemetry and for electrolytes abnormalities. -Keep K> 4 and Mg >2. Status: Acute Qualifiers: Heart failure type: systolic Qualified Code(s): I50.21 - Acute systolic (congestive) heart failure (2) Severe aortic stenosis: Critical with single vessel CAD -being evaluated for SAVR with single vessel CABG at [facility] however because of no bed availability he will be managed here till can be transferred. Status: Acute (3) Atrial fibrillation: H/o paroxysmal A. fib -Patient now in atrial fibrillation with rapid response . On current medications. -continue low dose metoprolol. -History of GI bleed however hemoglobin has been stable here with no active bleeding. On p.o. Eliquis. Status: Acute Qualifiers: Atrial fibrillation type: paroxysmal Qualified Code(s): I48.0 - Paroxysmal atrial fibrillation (4) NSTEMI (non-ST elevated myocardial infarction): Likely Type 2 in setting of severe and CHF Status: Acute (5) Hypertension: Status: Acute Qualifiers: Hypertension type: essential hypertension Qualified Code(s): I10 - Essential (primary) hypertension Additional A&P Information CAD : Single vessel CAD paroxysmal SVT noted on telemetry on admission ID [id number] Hyperlipidemia H/o GI bleed Thank you for allowing me to participate in patient's care. Please feel free to call with questions or concerns. Attestations Medical Necessity Statement*: Care expected to cross 2 midnights. 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
--- NOTE | 2020-11-16 19:24 | PC.NURSE ---
SHift SUmmary: Patient brought to ICU at 1500. After getting patient settled, a urrutia catheter was placed, and lasix and levophed drip started. THoracentesis perofrmed by Dr garrett after that. Per Dr garrett, minimum output goal over overnight caregiver is 1 liter. Preferably 1.5. Check BMP, and mag phos after 1 liter goal is reached. Patient needs to be placed on CPAP if he will tolerate. Dr Garrett wants to keep potassium levels greater than 4 and Mag levels greater than 2. FLuid restriction of 1500.
[2020-11-16 19:37] LABS: Body Fluid Polynuclear #Cells 0.033; Body Fluid WBC 192 /uL; Monocytes # Body Fluid 0.159
[2020-11-16 19:38] LABS: Apprearance, Body Fluid CLEAR; Color, Body Fluid YELLOW
[2020-11-16 19:55] LABS: LDH Pleural Fluid 65 U/L; Total Protein Pleural Fluid 1.4 g/dL
[2020-11-16 20:54] LABS: Glucose Point of Care 253 mg/dL (70-110)
--- NOTE | 2020-11-16 21:16 | P.TS_ITS ---
Transfer Summary Providers Date of Admission: 11/12/20 08:45 Date of Discharge: 11/16/20 Attending Provider at Admission: Eddy Alarcon MD Attending Provider at Transfer: Alonzo Tavera Primary Care Provider: ESDRAS Sahni Anticipated Date of Transfer: Anticipated date of transfer: 11/16/20 Receiving Facility & Provider: Receiving Provider: [] Receiving facility: [] Diagnoses at Discharge Discharge Diagnosis (1) Acute CHF (congestive heart failure): Status: Acute Qualifiers: Heart failure type: systolic Qualified Code(s): I50.21 - Acute systolic (congestive) heart failure (2) Acute and chronic respiratory failure with hypoxia: Status: Acute (3) Severe aortic stenosis: Status: Acute (4) Coronary artery disease: Status: Acute (5) Atrial fibrillation: Status: Acute Qualifiers: Atrial fibrillation type: paroxysmal Qualified Code(s): I48.0 - Paroxysmal atrial fibrillation (6) Diabetes mellitus: Status: Acute (7) Hypertension: Status: Acute Qualifiers: Hypertension type: essential hypertension Qualified Code(s): I10 - Essential (primary) hypertension (8) Hyperlipidemia: Status: Acute Reason for Visit Reason for Visit: SOB Hospital Course Hospital Course Pleasant 75-year-old gentleman with history of HTN, HLD, diabetes, depression, prostate cancer, recently with dizziness during trip to [place] where he was diagnosed with aortic stenosis, during that time also with GI bleeding for which received 2 units of blood transfusion with reports of some black stools which has since resolved, with last colonoscopy history about 10 years ago. They are also diagnosed with atrial fibrillation. He had since had follow-up and work-up with Dr. De Jesus at [facility] with coronary angiography 10/30 showing critical aortic stenosis, valve area 0.5 cm?, MG 62 mmHg. With right dominant circulation and RCA stenosis of 85%. EF during angiography noted 40%, echocardiogram at that time showing EF 55-60%, with severe aortic stenosis, mild MVR. He Dr. De Jesus have been planning for surgical intervention with single- vessel CABG and aortic valve replacement sometime next week. He presented to the hospital short of breath in the meantime on 11/12, found to have decompensated acute diastolic CHF, treated with Lasix, on presentation with NSTEMI but thought to be type II, continued on aspirin, statin, resumed on beta-jesse, in the hospital also initiated on amiodarone due to A. fib with RVR episodes during hospitalization. Initiated on Lovenox then Eliquis. On presentation with noted leukocytosis 14.4, but without cough, phlegm production, remained afebrile without focal opacity on chest x-rays with bilateral pleural effusions. Rapid COVID-19 negative. He has completed 2 doses of Pfizer vaccinations. D- dimer was minutely elevated at 0.62. Cardiology has been following patient in the hospital working on optimization in anticipation of his upcoming surgery. Transferred to [facility] was at tempted, however, throughout his hospital stay there has been no bed availability. With noted worsening oxygen requirement, progressing from initial 3 L nasal cannula to 5-then 10-day before yesterday, at which time additional Lasix were given, although diuresis was difficult due to soft blood pressures, was initiated on CPAP which he is not tolerated extremely well due to claustrophobia, but has maintained it for at least several hour intervals. Oxygen requirement further worsen to 12 L on 11/16 with again repeat additional Lasix and continued NIPPV, however, today noted requiring 15 L high flow cannula, reporting worsening orthopnea. Crackles on exam. Today for the first time reporting some mild intermittent cough, some thick sputum production, noted some mild blood-tinged by nursing staff. Noncontrast CT chest was obtained with noted multifocal bilateral airspace disease with predominant perihilar component. Prominent bilateral pleural effusions. We discussed his condition and the findings with him, with cardiology, and obtained consultation with pulmonary critical care with transfer to ICU. So far he has had no cough, with significant orthopnea today, with congestive/predominantly perihilar changes and Lacy B-lines on bedside ultrasound, with pleural effusions, suspicious most likely for pulmonary edema secondary to CHF, secondary to critical aortic stenosis. He was transitioned back to therapeutic Lovenox, although PE less likely given he has been on anticoagulation. His hemoglobin has remained stable. Since today he is coughing a little for the first time, producing some thick phlegm we requested for COVID-19 PCR, although this is considered less likely given he remains afebrile and lacks other symptoms, with negative rapid test on 11/12, and has been vaccinated. Empirically added oral Levaquin so as to avoid fluid overload but provide coverage in case of present bronchopneumonia given persistent leukocytosis some sputum production. His oxygen requirement has been progressively worsening over the hospitalization, with sluggish response to diuretics with intermittent additional doses, with soft blood pressures. On transfer to ICU he has been started on Lasix drip with transient Levophed support initially. However, blood pressure remained steady and is doing better, so this was weaned off. Per multiple discussions today he is encouraged to wear CPAP, and tolerates it for short periods but he does get claustrophobic. We have ordered some Xanax for him to help with this. On assessment by pulmonary critical care underwent right-sided thoracentesis with removal of 1700 mL of fluid. Fluid sent for laboratory analysis. As per discussion with patient since no beds available at [facility] in the foreseeable future he has been agreeable to seek bed opening at other institutions, starting with [facility]. He was kindly excepted for additional assessment and treatment there with accepting cardiac surgeon Dr. Jorge, his condition also discussed with CCU attending Dr. Landry. Currently awaiting bed opening. As per request he is transitioned to amiodarone drip. Dobutamine infusion at 2.5 may be needed in case of any additional signs that he is decompensating. Airlift will be attempted, however, as per discussion with our center director lead teacher in case airlift not available ground transport should be acceptable. Consider maintaining him on CPAP. Physical Exam Const: COMMON NORMALS: no acute distress and patient oriented x3 HENMT: COMMON NORMALS: oropharynx normal Resp: COMMON NORMALS: normal respiratory effort and clear to auscultation bilaterally AUSCULTATION: clear to auscultation bilaterally Cardio: COMMON NORMALS: regular rhythm, S1 normal heart sound present, S2 normal heart sound present and No murmurs present (Cardio) RHYTHM: regular rhythm HEART SOUNDS: S1 normal heart sound present and S2 normal heart sound present GI: COMMON NORMALS: Normal to inspection, nondistended, normoactive bowel sounds present, Soft to palpation and non-tender PALPATION: Yes Soft to palpation Extremity: COMMON NORMALS: no joint enlargement and no pedal edema Neuro: COMMON NORMALS: patient oriented x3 and moves all extremities Skin: COMMON NORMALS: no rashes or lesions noted GENERAL SKIN EXAM: no rashes or lesions noted Urinary Catheter Management^: Crowe: Cath Placed During This Visit: yes Reason for Continuing Indwelling Catheter: Accurate Measurement of Urinary Output in Critically Ill Patients Urinary Catheter Date of Insertion: 11/16/20 Urinary Catheter Time of Insertion: 17:11 TS Data Data Completed and Pending: Completed Studies During Hospitalization Category Date Time Status CT chest wo con 7 1250 Stat Cat Scan 11/16/20 08:46 Completed XR chest 1V rodger ble [id number] Routine Exams 11/14/20 10:21 Completed XR chest 1V rodger ble [id number] Stat Exams 11/12/20 06:37 Completed XR chest 1V rodger ble [id number] Stat Exams 11/16/20 18:46 Completed Pending at discharge Category Date Time Status BMP [Basic Metabo lic Panel] AM LABS Lab 11/17/20 04:00 Ordered Basic Metabolic P tom AM LABS Lab 11/17/20 04:00 Ordered Basic Metabolic P tom AM LABS Lab 11/18/20 04:00 Ordered Body Fluid Cultur e & GS Routine Lab 11/16/20 18:10 Received Complete Blood Co unt w/Auto AM LABS Lab 11/17/20 04:00 Ordered Complete Blood Co unt w/Auto AM LABS Lab 11/18/20 04:00 Ordered Magnesium AM LABS Lab 11/17/20 04:00 Ordered Mycobacteria, Cul ture w/Fluor Routi ne Lab 11/16/20 18:10 Received Phosphorus AM LAB S Lab 11/17/20 04:00 Ordered [facility] SARS-CoV-2 RNA Routine Lab 11/16/20 13:28 Received Sputum Culture Ro utine Lab 11/16/20 17:30 Received Cytology [PTH] Ro utine Pth 11/16/20 18:45 Received CV. echo complete * [id number] Routine Ultrasound 11/17/20 06:00 Ordered Labs from last 24 hours 11/16/20 11/16/20 11/16/20 20:44 18:10 16:59 WBC RBC Hgb Hct MCV MCH MCHC RDW Plt Count MPV Neut % (Auto) Lymph % (Auto) [place] % (Auto) Eos % (Auto) Baso % (Auto) Neut # (Auto) Lymph # (Auto) [place] # (Auto) Eos # (Auto) Baso # (Auto) Nucleated RBC % (a uto) Nucleated RBCs # Sodium Potassium Chloride Carbon Dioxide Anion Gap BUN Creatinine GFR Calculation Glucose POC Glucose 253 H 225 H Calculated Osmolal ity Calcium Fluid Color Yellow Fluid Appearance Clear Fluid WBC 192 Fluid RBC 1.000 Fld Polynuclear WB Cs # 0.033 Fld Polynuclear WB Cs % 17.200 Fl Mononucl WBCs # (Auto) 0.159 Fl Mononuclear % A uto 82.800 Pleural pH 9.00 H Pleural Total Prot ein 1.4 Pleural LDH 65 Pleural Glucose 263.0 SARS-CoV-2 RNA (RT -PCR) 11/16/20 11/16/20 11/16/20 13:28 11:25 06:30 WBC RBC Hgb Hct MCV MCH MCHC RDW Plt Count MPV Neut % (Auto) Lymph % (Auto) [place] % (Auto) Eos % (Auto) Baso % (Auto) Neut # (Auto) Lymph # (Auto) [place] # (Auto) Eos # (Auto) Baso # (Auto) Nucleated RBC % (a uto) Nucleated RBCs # Sodium Potassium Chloride Carbon Dioxide Anion Gap BUN Creatinine GFR Calculation Glucose POC Glucose 329 H 166 H Calculated Osmolal ity Calcium Fluid Color Fluid Appearance Fluid WBC Fluid RBC Fld Polynuclear WB Cs # Fld Polynuclear WB Cs % Fl Mononucl WBCs # (Auto) Fl Mononuclear % A uto Pleural pH Pleural Total Prot ein Pleural LDH Pleural Glucose SARS-CoV-2 RNA (RT -PCR) Pending 11/16/20 11/16/20 04:30 04:30 WBC 13.4 H RBC 4.62 Hgb 13.2 Hct 41.3 L MCV 89.4 MCH 28.6 MCHC 32.0 RDW 15.6 H Plt Count 304 MPV 10.7 H Neut % (Auto) 68.6 Lymph % (Auto) 18.7 [place] % (Auto) 9.7 Eos % (Auto) 2.1 Baso % (Auto) 0.5 Neut # (Auto) 9.17 H Lymph # (Auto) 2.5 [place] # (Auto) 1.3 H Eos # (Auto) 0.3 Baso # (Auto) 0.1 Nucleated RBC % (a uto) 0 Nucleated RBCs # 0.0 Sodium 137 Potassium 4.2 Chloride 98 Carbon Dioxide 30 H Anion Gap 13.2 BUN 41 H Creatinine 0.9 GFR Calculation Not Reportable Glucose 148 H POC Glucose Calculated Osmolal ity 297 H Calcium 8.3 L Fluid Color Fluid Appearance Fluid WBC Fluid RBC Fld Polynuclear WB Cs # Fld Polynuclear WB Cs % Fl Mononucl WBCs # (Auto) Fl Mononuclear % A uto Pleural pH Pleural Total Prot ein Pleural LDH Pleural Glucose SARS-CoV-2 RNA (RT -PCR) Vitals: Last Vital Signs Temp 98.1 F 11/16/20 16:45 Pulse 85 11/16/20 20:00 Resp 25 H 11/16/20 20:00 BP 92/64 11/16/20 20:00 Pulse Ox 90 11/16/20 20:00 TS Medications Medications Home Medications aspirin 81 mg PO QAM 11/12/20 [History Confirmed 11/12/20] atorvastatin 40 mg PO QAM 11/12/20 [History Confirmed 11/12/20] dulaglutide [Trulicity] 1.5 mg SUBCUT Q7D 11/12/20 [History Confirmed 11/12/20] ferrous sulfate 325 mg PO BID 11/12/20 [History Confirmed 11/12/20] insulin degludec [Tresiba FlexTouch U-100] 47 unit SUBCUT QAM 11/12/20 [History Confirmed 11/12/20] metformin 1,000 mg PO BID 11/12/20 [History Confirmed 11/12/20] metoprolol tartrate 25 mg PO BID 11/12/20 [History Confirmed 11/12/20] ondansetron HCl 4 mg PO Q6H PRN 11/12/20 [History Confirmed 11/12/20] sertraline 50 mg PO QAM 11/12/20 [History Confirmed 11/12/20] tramadol 50 mg PO QID PRN 11/12/20 [History Confirmed 11/12/20] Active Medications Acetaminophen (Acetaminophen 325 Mg Tablet) 650 mg PO Q6H PRN PRN Reason: Mild/Mod Pain Or Temp >/= 101 Last Admin: 11/15/20 20:06 Dose: 650 mg Documented by: Albuterol/Ipratropium (Ipratropium-Albuterol 3 Ml Neb) 3 ml INHALATION Q6H PRN PRN Reason: SHORTNESS OF BREATH Alprazolam (Alprazolam 0.5 Mg Tablet) 0.25 mg PO Q6H PRN PRN Reason: ANXIETY Last Admin: 11/16/20 17:53 Dose: 0.25 mg Documented by: Aspirin (Aspirin 81 Mg Ec Tablet) [facility] Last Admin: 11/16/20 05:24 Dose: 81 mg Documented by: Atorvastatin Calcium (Atorvastatin 40 Mg Tablet) 40 mg PO QAM RABIA Last Admin: 11/16/20 05:24 Dose: 40 mg Documented by: Dextrose (Dextrose 50% Syringe 50 Ml) 25 ml IVP ONCE PRN; Protocol PRN Reason: hypoglycemia protocol Dextrose (Dextrose 50% Syringe 50 Ml) 50 ml IVP PRN PRN; Protocol PRN Reason: hypoglycemia protocol Enoxaparin Sodium (Enoxaparin 100 Mg/Ml Syringe) 90 mg 1 mg/kg (90 mg) SUBCUT Q12H RABIA Last Admin: 11/16/20 20:55 Dose: 90 mg Documented by: Glucagon (Glucagon 1 Mg/Ml Inj 1 Ml) 1 mg IM ONCE PRN; Protocol PRN Reason: Adult Acute Hypoglycemia Prot. Dextrose (D5w) 500 mls @ 100 mls/hr IV ONCE PRN; Protocol PRN Reason: Adult Acute Hypoglycemia Prot Furosemide 100 mg/ Sodium (Chloride) 50 mls @ 0 mls/hr IV .Q0M RABIA; Protocol Last Titration: 11/16/20 18:38 Dose: 10 mg/hr, 5 mls/hr Documented by: Norepinephrine Bitartrate 4 mg (/ Dextrose) 254 mls @ 0 mls/hr IV .Q0M RABIA; Protocol Last Admin: 11/16/20 16:56 Dose: 2 mcg/min, 7.62 mls/hr Documented by: Amiodarone HCl 900 mg/Dextrose/ IV Miscellaneous Supplies 518 mls @ 0 mls/hr IV .Q0M RABIA; Protocol Last Admin: 11/16/20 20:58 Dose: 1 mg/min, 34.53 mls/hr Documented by: Insulin Aspart (Insulin Aspart 100 Unit/1 Ml) 0 unit SUBCUT WM&BEDTIME RABIA; Protocol Last Admin: 11/16/20 20:56 Dose: 6 unit Documented by: Levofloxacin (Levofloxacin 750 Mg Tablet) 750 mg PO Q24H RABIA; Protocol Last Admin: 11/16/20 14:01 Dose: 750 mg Documented by: Ondansetron HCl (Ondansetron 2 Mg/Ml Sdv 2 Ml) 4 mg IVP Q6H PRN PRN Reason: vomiting, or N/V if npo Last Admin: 11/16/20 15:23 Dose: 4 mg Documented by: Pantoprazole Sodium (Pantoprazole Dr 40 Mg Tablet) 40 mg PO DAILY [facility] Last Admin: 11/16/20 09:27 Dose: 40 mg Documented by: Potassium Chloride (Potassium Chloride Er 10 Meq Tablet) 20 meq PO DAILY [facility] Last Admin: 11/16/20 09:27 Dose: 20 meq Documented by: Sertraline HCl (Sertraline 50 Mg Tablet) 50 mg PO QAM [facility] Last Admin: 11/16/20 05:24 Dose: 50 mg Documented by: Discharge Plan Discharge Patient Disposition: Xfer Short-Term Hosp Condition: Stable Prescriptions: No Action atorvastatin 40 mg tablet 40 mg PO QAM RF: 0 ondansetron HCl 4 mg tablet 4 mg PO Q6H PRN (Reason: Nausea And Vomiting) RF: 0 aspirin 81 mg tablet,delayed release (DR/EC) 81 mg PO QAM RF: 0 tramadol 50 mg tablet 50 mg PO QID PRN (Reason: Pain) RF: 0 ferrous sulfate 325 mg (65 mg iron) tablet 325 mg PO BID RF: 0 metformin 1,000 mg tablet 1,000 mg PO BID RF: 0 sertraline 50 mg tablet 50 mg PO QAM RF: 0 metoprolol tartrate 25 mg tablet 25 mg PO BID RF: 0 Tresiba FlexTouch U-100 100 unit/mL (3 mL) insulin pen 47 unit SUBCUT QAM RF: 0 Trulicity 1.5 mg/0.5 mL pen injector 1.5 mg SUBCUT Q7D RF: 0 Referrals: Altagracia Payne FNP [Primary Care Provider] - None Transfer Attestations Time Spent in Transfer Care*: greater than 30 min Quality Metrics Clinical Quality Measures: During this hospital stay, did patient experience: AMI Clinical Trial Participant: No Contraindication to aspirin (AMI): Aspirin given Contraindication to statin: Statin prescribed Coding Level of Care Code Acute Supervisor Receiving And Processing for [facility] Fwd Diagnoses Acute CHF (congestive heart failure) I50.21 Heart failure type: systolic Acute and chronic respiratory failure with hypoxia J96.21 Severe aortic stenosis I35.0 Coronary artery disease I25.10 Atrial fibrillation I48.0 Atrial fibrillation type: paroxysmal Diabetes mellitus E11.9 Hypertension I10 Hypertension type: essential hypertension Hyperlipidemia E78.5
--- NOTE | 2020-11-16 21:35 | PC.NURSE ---
Update Urine output close to 500ml since starting lasix drip. Since pending transfer waiting for transport, stat bmp and mg level obtained K+ 4.3, Mg 1.8. Dr. Condon called for Bernie recommendations of keeping MG >2.0. Received telephone orders for mg 1 gm IV X 1.
[2020-11-16 21:38] LABS: ABG PCO2 40.5 mmHg (35-45); ABG PH Result 7.48 (7.35-7.45); Arterial Blood Gas Hematocrit 39.8 % (42-52); Base Excess ABG 6.2 mmol/L (-2.0-2.0); Blood Gas Operator Identificat JB; Blood Gas Sample Site Brachial, right; Blood Gas Sample Type Arterial; HCO3 ABG 30.2 mmol/L (22-26); Oxygen Device NC; PO2 ABG 58.6 mmHg (80.0-100.0)
[2020-11-16 21:58] LABS: Anion Gap 14.3 (5-19); Blood Urea Nitrogen 34 mg/dL (8-23); Calcium 7.7 mg/dL (8.5-10.5); Carbon Dioxide 27 mmol/L (22-29); Chloride 98 mmol/L (98-107); Glucose 195 mg/dL (65-115); Magnesium 1.8 mg/dL (1.7-2.3); Osmolality Calculated 293 mOsm/kg (285-295); Potassium 4.3 mmol/L (3.5-5.1); Sodium 135 mmol/L (136-145)
--- NOTE | 2020-11-16 23:10 | NUR.SHIFT ---
Transfer Note Jose David quiñones arrived via ems to transport patient to [facility] at this time. 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 Pt left alert and oriented X4. Report had previously been called to Jaki at [facility]. Family notified of transfer.
[2020-11-18 03:57] LABS: Quest SARS-CoV-2 RNA NOT DETECTED (NOT DETECTED)
== END 2020-11-16 23:14 | disposition short-term general hospital (02) | DRG 280 ==
LOC: ER 09:28 → CSU 11:25 → ICU 11-16 14:52
PROVIDERS: Hospitalist; Internal Medicine Critical Care Medicine; Admitting Provider Internal Medicine; Emergency Provider Emergency Medicine; PCP Nurse Practitioner Family; Visit Provider Internal Medicine
DX: I11.0 Hypertensive heart disease with heart failure (principal); I21.A1 Myocardial infarction type 2; J96.21 Acute and chronic respiratory failure with hypoxia; J18.0 Bronchopneumonia, unspecified organism; J90 Pleural effusion, not elsewhere classified; I50.23 Acute on chronic systolic (congestive) heart failure; I35.0 Nonrheumatic aortic (valve) stenosis; D64.9 Anemia, unspecified; I25.10 Atherosclerotic heart disease of native coronary artery without angina pectoris; F32.9 Major depressive disorder, single episode, unspecified; E11.9 Type 2 diabetes mellitus without complications; E78.5 Hyperlipidemia, unspecified; C61 Malignant neoplasm of prostate; Z90.79 Acquired absence of other genital organ(s); Z87.891 Personal history of nicotine dependence; I48.0 Paroxysmal atrial fibrillation; Z79.4 Long term (current) use of insulin; Z79.82 Long term (current) use of aspirin
CPT/HCPCS: 36415; 36416; 36600; 51702; 71045; 71250; 80048; 80051; 80053; 80500; 81001; 82330; 82803; 82805; 82945; 82962; 83615; 83735; 83880; 83986; 84145; 84157; 84443; 84484; 85014; 85018; 85025; 85378; 85610; 85730; 87015; 87070; 87075; 87116; 87205; 87206; 87426; 87635; 87801; 88112; 88305; 89050; 93005; 94640; 94660; 94664; 96365; 96372; 96375; 99285; 99291; 99292; J0282; J1160; J1650; J1815; J1940; J2405; J3475; J3480; J3535; J7060